=== PATIENT | male | born 1975 | race African-American/Black ===

== ENCOUNTER 2016-07-07 06:54 | Emergency (ER) | payer OTHER ==
[~2016-07-07] VITALS: Ht 172.7 cm; Wt 75.0 kg
[~2016-07-07 06:54] MED LIST: OLAN5TAB PO; PERM5CRE11 TOPICAL; ZYRT10CA PO
[2016-07-07 06:56] VITALS: BP 125/73; PULSE 82; RESP 16; TEMP 97.9; O2SAT 99
--- NOTE | 2016-07-07 07:32 | PD ---
HPI Chief Complaint: Bite or Sting Time Seen by Provider: 07:15 Travel History International Travel<30 days: No Contact w/Intl Traveler<30days: No Traveled to known affect area: No History of Present Illness HPI Patient is a 41-year-old male who presents emergency department for evaluation of an insect bite to the back of his head. He states that he was bit this morning and wanted to have it "checked out". He denies any fever, chills, nausea, vomiting, headache, neck pain. He denies any history of anaphylaxis. PFSH Past Medical History Anxiety: Yes Depression: Yes Diminished Hearing: No Gastrointestinal Disorders: No Genitourinary: No Hypertension: Yes Immune Disorder: Yes (HIV+) Immunizations Current: Yes Migraines: Yes Past Surgical History Other Surgery: No Social History Alcohol Use: No Tobacco Use: No Substance Use: No Allergies-Medications (Allergen,Severity, Reaction): Coded Allergies: *MDRO Multi-Drug Resistant Organism (Verified Adverse Reaction, Unknown, 06/19/16) MRSA PCR Screen positive 05/08/15; MRSA (groin-06/2015), (face-08/2015), (wrist-11/2015) Reported Meds & Prescriptions Reported Meds & Active Scripts Active Zyrtec Allergy (Cetirizine HCl) 10 Mg Cap 10 Mg PO DAILY Elimite Topical (Permethrin) 5% Cream 1 Applic TOPICAL ONCE Reported Olanzapine 5 Mg Tab 5 Mg PO HS Review of Systems Except as stated in HPI: all other systems reviewed are Neg General / Constitutional: No: Fever HENT: No: Headaches, Neck Stiffness, Neck Pain Respiratory: No: Cough, Shortness of Breath, Wheezing Skin: Positive Lesions Physical Exam Narrative GENERAL: Well-nourished, well-developed patient. SKIN: Warm and dry. There is a 3 mm scabbed lesion to posterior scalp, no surrounding erythema, fluctuance, tenderness, warmth. No drainage noted. HEAD: Normocephalic. EYES: No scleral icterus. No injection or drainage. NECK: Supple, trachea midline. No JVD or lymphadenopathy. CARDIOVASCULAR: Regular rate and rhythm without murmurs, gallops, or rubs. RESPIRATORY: Breath sounds equal bilaterally. No accessory muscle use. GASTROINTESTINAL: Abdomen soft, non-tender, nondistended. MUSCULOSKELETAL: No cyanosis, or edema. BACK: Nontender without obvious deformity. No CVA tenderness. Data Data Last Documented VS Vital Signs Date Time Temp Pulse Resp B/P Pulse Ox O2 Delivery O2 Flow Rate FiO2 07/07/16 06:56 97.9 82 16 125/73 99 MDM Medical Decision Making Medical Screen Exam Complete: Yes Emergency Medical Condition: Yes Interpretation(s) Vital Signs Date Time Temp Pulse Resp B/P Pulse Ox O2 Delivery O2 Flow Rate FiO2 07/07/16 06:56 97.9 82 16 125/73 99 Differential Diagnosis Insect bite versus dermatitis versus cellulitis versus folliculitis versus other Narrative Course Patient is a 41-year-old male who presents emergency for evaluation of insect bite that he states he sustained earlier this morning. There is no evidence of cellulitis noted. There is a 3 mm scabbed lesion to the posterior scalp. Patient was encouraged to avoid picking at this, he was encouraged to wash his hair with soap and water, he was reassured that at this time there did not appear to be any surrounding infection. His vital signs are stable, he verbalized understanding of instructions. He was encouraged to come back to emergency department for any new or worsening symptoms or follow up with his primary doctor or the [facility]. Patient is stable for discharge. Diagnosis Primary Impression: Insect bites Qualified Code: W57.XXXA - Insect bites, initial encounter Referrals: [facility] Patient Instructions: General Instructions, Insect Bite or Sting (ED) Additional Instructions: Follow-up at the [facility] or with your primary doctor Wash area with soap and water, do not pick at area Return to emergency department for any new or worsening symptoms Med/Other Pt SpecificInfo: No Change to Meds Disposition: 01 DISCHARGE HOME Condition: Stable Megan Cline Jul 07, 2016 07:31
[2016-10-20] MEDS ORDERED: IBUP200T2 PO (15:23)
[2016-10-20] MEDS ORDERED: ZYPR10TA PO (15:23)
[2016-10-20] MEDS ORDERED: BENA25TA3 PO (15:23)
[2016-10-20] MEDS ORDERED: AMOX500C PO (15:52)
[2016-10-20] MEDS ORDERED: METH125I2 IM (15:59)
[2016-10-20] MEDS ORDERED: CLOT1CRE6 TOPICAL (16:06)
[2016-11-26] MEDS ORDERED: DIPH25CA PO (11:37)
[2016-11-26] MEDS ORDERED: CIPR500T2 PO (12:06)
== END 2016-07-07 07:47 | disposition home or self-care (01) ==
LOC: NEPB 06:54 → MERGE 06:54 → NEPB 07:47
DX: S00.06XA Insect bite (nonvenomous) of scalp, initial encounter (principal); W57.XXXA Bitten or stung by nonvenomous insect and other nonvenomous arthropods, initial encounter
CPT/HCPCS: 99281

== ENCOUNTER 2016-07-22 19:20 | Emergency (ER) | payer OTHER ==
[~2016-07-22] VITALS: Ht 172.7 cm; Wt 81.0 kg
[2016-07-22 19:22] VITALS: BP 139/73; PULSE 85; RESP 16; TEMP 97.8; O2SAT 97
[2016-07-22] MEDS ORDERED: OFLO0.3D9 LEFT EAR (22:24)
[2016-07-22] MEDS ORDERED: AUGM875T PO (22:24)
--- NOTE | 2016-07-22 22:30 | PD ---
HPI Chief Complaint: ENT Complaint Time Seen by Provider: 22:20 Travel History International Travel<30 days: No Contact w/Intl Traveler<30days: No Traveled to known affect area: No History of Present Illness HPI 41-year-old male here with left ear pain. He has had a cough and congestion since yesterday. Today he developed left ear pain and drainage from left ear. Pain is a throbbing pain that is constant, no alleviating factors. No fevers or chills, recent travel, recent swimming. No other complaints. PFSH Past Medical History Anxiety: Yes Depression: Yes Cardiovascular Problems: Yes (HTN) Diminished Hearing: No Gastrointestinal Disorders: No Genitourinary: No Hypertension: Yes Immune Disorder: Yes (HIV+) Respiratory: Yes (BRONCHITIS) Immunizations Current: Yes Migraines: Yes Past Surgical History Other Surgery: No Social History Alcohol Use: No Tobacco Use: No Substance Use: No Allergies-Medications (Allergen,Severity, Reaction): Coded Allergies: *MDRO Multi-Drug Resistant Organism (Verified Adverse Reaction, Unknown, ) MRSA PCR Screen positive 05/08/15; MRSA (groin-06/2015), (face-08/2015), (wrist-11/2015) Reported Meds & Prescriptions Reported Meds & Active Scripts Active Ofloxacin Otic Drops 0.3 % Drops 10 Drop LEFT EAR BID 10 Days Augmentin (Amoxicillin-Clavulanate) 875-125 mg Tab 875 Mg PO BID 10 Days not for use in CrCl <30 ml/min. Zyrtec Allergy (Cetirizine HCl) 10 Mg Cap 10 Mg PO DAILY Elimite Topical (Permethrin) 5% Cream 1 Applic TOPICAL ONCE Reported Olanzapine 5 Mg Tab 5 Mg PO HS Review of Systems Except as stated in HPI: all other systems reviewed are Neg Physical Exam Narrative GENERAL: Well-developed well-nourished male in no acute distress SKIN: Warm and dry. HEAD: Atraumatic. Normocephalic. EYES: Pupils equal and round. No scleral icterus. No injection or drainage. ENT: No nasal bleeding or discharge. Mucous membranes pink and moist. There is some purulent looking drainage noted in the left ear canal. There appears to be a tympanic membrane perforation at the 7 o'clock position. NECK: Trachea midline. No JVD. No lymphadenopathy. CARDIOVASCULAR: Regular rate and rhythm. No murmur appreciated. RESPIRATORY: No accessory muscle use. Clear to auscultation. Breath sounds equal bilaterally. Data Data Last Documented VS Vital Signs Date Time Temp Pulse Resp B/P Pulse Ox O2 Delivery O2 Flow Rate FiO2 07/22/16 19:22 97.8 85 16 139/73 97 Room Air MDM Medical Decision Making Medical Screen Exam Complete: Yes Emergency Medical Condition: Yes Medical Record Reviewed: Yes Differential Diagnosis Left otitis media, perforated tympanic membrane, otitis externa, mastoiditis, bronchitis, pneumonia, influenza, sinusitis Narrative Course Examination reveals a perforated left tympanic membranes likely secondary to otitis media. Plan is to treat the patient with Augmentin, ofloxacin otic solution, outpatient follow-up in 1-2 weeks with primary care physician. Diagnosis Primary Impression: Left otitis media with spontaneous rupture of eardrum Additional Instructions: Medication as prescribed. Avoid getting water in left ear canal. Follow-up in one to 2 weeks with primary care physician. Return for any emergent medical conditions. Med/Other Pt SpecificInfo: Prescription(s) given Scripts Ofloxacin Otic Drops 0.3 % Drops10 Drop LEFT EAR BID 10 Days Ref 0 Prov:Bushra Short MD 07/22/16 Amoxicillin-Clavulanate (Augmentin)875-125 mg Hom666 Mg PO BID 10 Days Ref 0 not for use in CrCl <30 ml/min. Prov:Bushra Short MD 07/22/16 Disposition: 01 DISCHARGE HOME Condition: Stable Martin Tomas Jul 22, 2016 22:30
[2016-10-20] MEDS ORDERED: BENA25TA3 PO (15:23)
[2016-10-20] MEDS ORDERED: ZYPR10TA PO (15:23)
[2016-10-20] MEDS ORDERED: IBUP200T2 PO (15:23)
[2016-10-20] MEDS ORDERED: AMOX500C PO (15:52)
[2016-10-20] MEDS ORDERED: METH125I2 IM (15:59)
[2016-10-20] MEDS ORDERED: CLOT1CRE6 TOPICAL (16:06)
[2016-11-26] MEDS ORDERED: DIPH25CA PO (11:37)
[2016-11-26] MEDS ORDERED: CIPR500T2 PO (12:06)
== END 2016-07-22 22:56 | disposition home or self-care (01) ==
LOC: NEPB 19:20 → MERGE 19:20 → NEPB 22:56
DX: H66.92 Otitis media, unspecified, left ear (principal); H72.92 Unspecified perforation of tympanic membrane, left ear; I10 Essential (primary) hypertension; Z21 Asymptomatic human immunodeficiency virus [HIV] infection status
CPT/HCPCS: 99283

== ENCOUNTER 2016-08-13 12:36 | Emergency (ER) | payer SELFPAY ==
[~2016-08-13] VITALS: Ht 172.7 cm; Wt 79.1 kg
[~2016-08-13 12:36] MED LIST changes: +AUGM875T PO; +OFLO0.3D9 LEFT EAR
[2016-08-13 12:37] VITALS: BP 122/70; PULSE 75; RESP 14; TEMP 98.3; O2SAT 99
--- NOTE | 2016-08-13 13:08 | PD ---
HPI Chief Complaint: ENT Complaint Time Seen by Provider: 13:03 Travel History International Travel<30 days: No Contact w/Intl Traveler<30days: No Traveled to known affect area: No History of Present Illness HPI 41-year-old with past medical history of HIV here with complaints of ear fullness. Patient states he noted drainage several weeks ago and now has a fullness sensation to the right ear. He follows with Outreach and Dr. Barnett, but did not see either for his issue. He denies any fever, chills, cold sxs, etc. he denies any trauma to the ear. History Past Medical Histgory Narrative Medical 41-year-old male with history of HIV here with complaint of right ear fullness. Patient says he noticed some possible drainage from his ear several weeks ago and now feels full. He denies any cold-like symptoms. He denies any fever or chills. Social History Alcohol Use: No Tobacco Use: No Allergies-Medications (Allergen,Severity, Reaction): Coded Allergies: *MDRO Multi-Drug Resistant Organism (Verified Adverse Reaction, Unknown, ) MRSA PCR Screen positive 05/08/15; MRSA (groin-06/2015), (face-08/2015), (wrist-11/2015) Reported Meds & Prescriptions Reported Meds & Active Scripts Active Ofloxacin Otic Drops 0.3 % Drops 10 Drop LEFT EAR BID 10 Days Augmentin (Amoxicillin-Clavulanate) 875-125 mg Tab 875 Mg PO BID 10 Days not for use in CrCl <30 ml/min. Zyrtec Allergy (Cetirizine HCl) 10 Mg Cap 10 Mg PO DAILY Elimite Topical (Permethrin) 5% Cream 1 Applic TOPICAL ONCE Reported Olanzapine 5 Mg Tab 5 Mg PO HS Review of Systems General / Constitutional: No: Fever Eyes: No: Visual changes HENT: Positive: Ear Discharge, Earache, No: Headaches Cardiovascular: No: Chest Pain or Discomfort Respiratory: No: Shortness of Breath Gastrointestinal: No: Abdominal Pain Genitourinary: No: Dysuria Musculoskeletal: No: Pain Skin: No Rash Neurologic: No: Weakness Psychiatric: No: Depression Endocrine: No: Polydipsia Hematologic/Lymphatic: No: Easy Bruising Physical Exam Narrative GENERAL: AAO x 3, no acute distress, Well-nourished, well-developed patient. SKIN: Warm and dry. No visible rashes or bruising. HEAD: Normocephalic and atraumatic. EYES: No scleral icterus. No injection or drainage. ENT: No nasal drainage noted. Mucous membranes pink. Airway patent. Right Cerumen impaction and mild erythema. NECK: Supple, trachea midline. No JVD. CARDIOVASCULAR: Regular rate and rhythm without murmurs, gallops, or rubs. RESPIRATORY: Breath sounds equal bilaterally. No accessory muscle use. No rhonchi or rales. GASTROINTESTINAL: Abdomen soft, non-tender, nondistended. EXTREMITIES: No cyanosis or edema. PSYCH: AAO x 3, normal affect. Data Data Last Documented VS Vital Signs Date Time Temp Pulse Resp B/P Pulse Ox O2 Delivery O2 Flow Rate FiO2 08/13/16 12:37 98.3 75 14 122/70 99 Room Air MDM Medical Screen Exam Complete: Yes Emergency Medical Condition: No Differential Diagnosis cerumen impaction, right OM, Right OE Narrative Course 41-year-old male with history of HIV here with complaint of right ear fullness. Patient says he noticed some possible drainage from his ear several weeks ago and now feels full. He denies any cold-like symptoms. He denies any fever or chills. A medical screening exam was performed: At the time of evaluation the presenting medical condition was determined not to be of an emergent nature. The patient was given the option of receiving additional care, but declined. Patient was given options for additional community resources from which to obtain care. The Patient Has Been advised to seek medical attention for their presenting complaint. The patient has been advised to return to the ER at any time if an emergent condition develops. Primary Impression: Encounter for medical screening examination Condition: Stable (ERASED) Elizabeth Echeverria Aug 13, 2016 13:08
[2016-10-20] MEDS ORDERED: BENA25TA3 PO (15:23)
[2016-10-20] MEDS ORDERED: IBUP200T2 PO (15:23)
[2016-10-20] MEDS ORDERED: ZYPR10TA PO (15:23)
[2016-10-20] MEDS ORDERED: AMOX500C PO (15:52)
[2016-10-20] MEDS ORDERED: METH125I2 IM (15:59)
[2016-10-20] MEDS ORDERED: CLOT1CRE6 TOPICAL (16:06)
[2016-11-26] MEDS ORDERED: DIPH25CA PO (11:37)
[2016-11-26] MEDS ORDERED: CIPR500T2 PO (12:06)
== END 2016-08-13 13:16 | disposition left against medical advice (07) ==
LOC: NEPB 12:36 → MERGE 12:36 → NEPB 13:16
DX: H93.91 Unspecified disorder of right ear (principal)
CPT/HCPCS: 99281

== ENCOUNTER 2016-09-20 21:40 | Emergency (ER) | payer OTHER ==
[~2016-09-20] VITALS: Ht 172.7 cm; Wt 79.0 kg
[2016-09-20 21:43] VITALS: BP 133/68; PULSE 75; RESP 16; TEMP 97.4; O2SAT 100
[2016-09-20] MEDS ORDERED: DIVA250ER PO (22:00)
[2016-09-20] MEDS ORDERED: LISI10TA3 PO (22:00)
[2016-09-20] MEDS ORDERED: CORT1SOL EACH EAR (22:02)
--- NOTE | 2016-09-20 22:02 | PD ---
HPI Chief Complaint: ENT Complaint Time Seen by Provider: 21:59 Travel History International Travel<30 days: No Contact w/Intl Traveler<30days: No Traveled to known affect area: No History of Present Illness HPI 41-year-old black male presents to emergency department with a Q-tip in his left ear. He states that he feels that he has an ear infection he's been using Q-tips. Pain is minimal. No hearing loss. No blood. PFSH Past Medical History Narrative Medical Anxiety, depression, HIV Anxiety: Yes Depression: Yes Cardiovascular Problems: Yes (HTN) Diminished Hearing: No Gastrointestinal Disorders: No Genitourinary: No Hypertension: Yes Immune Disorder: Yes (HIV+) Respiratory: Yes (BRONCHITIS) Immunizations Current: Yes Migraines: Yes Past Surgical History Other Surgery: No Social History Alcohol Use: No Tobacco Use: No Substance Use: No Allergies-Medications (Allergen,Severity, Reaction): Coded Allergies: *MDRO Multi-Drug Resistant Organism (Verified Adverse Reaction, Unknown, ) MRSA PCR Screen positive 05/08/15; MRSA (groin-06/2015), (face-08/2015), (wrist-11/2015) Reported Meds & Prescriptions Reported Meds & Active Scripts Active Ofloxacin Otic Drops 0.3 % Drops 10 Drop LEFT EAR BID 10 Days Augmentin (Amoxicillin-Clavulanate) 875-125 mg Tab 875 Mg PO BID 10 Days not for use in CrCl <30 ml/min. Zyrtec Allergy (Cetirizine HCl) 10 Mg Cap 10 Mg PO DAILY Elimite Topical (Permethrin) 5% Cream 1 Applic TOPICAL ONCE Reported Olanzapine 5 Mg Tab 5 Mg PO HS Review of Systems Except as stated in HPI: all other systems reviewed are Neg Physical Exam Narrative GENERAL: Well-developed, well-nourished in no acute distress. Nontoxic appearing. HEAD: Normocephalic, atraumatic. EYES: Pupils equal round and reactive. Extraocular motions intact. No scleral icterus. No injection or drainage. ENT: TMs clear without erythema. The external auditory canals there is a Q-tip foreign body in the left external auditory canals. There is some edema of the canal bilaterally. TMs intact without perforation. Nose: clear . Posterior pharynx is pink and moist. No tonsillar edema or exudate. Uvula midline. Airway patent. NECK: Trachea midline.Supple, nontender, moves head freely. No central bony tenderness or spasm. CARDIOVASCULAR: Regular rate and rhythm without murmurs, gallops, or rubs. RESPIRATORY: Clear to auscultation. Breath sounds equal bilaterally. No wheezes , rales, or rhonchi. GASTROINTESTINAL: Abdomen soft, non-tender, nondistended. No hepato-splenomegaly , or palpable masses. No guarding. EXTREMITIES: No clubbing, cyanosis, or edema. No joint tenderness, effusion, or edema noted. BACK: Nontender without deformity or crepitance. No flank tenderness. Data Data Last Documented VS Vital Signs Date Time Temp Pulse Resp B/P Pulse Ox O2 Delivery O2 Flow Rate FiO2 09/20/16 21:43 97.4 75 16 133/68 100 Room Air MDM Medical Decision Making Medical Screen Exam Complete: Yes Emergency Medical Condition: Yes Medical Record Reviewed: Yes Differential Diagnosis Differential diagnoses: Otitis externa, otitis media, foreign body Narrative Course Patient has a foreign body in his left ear canal which has been removed Procedures Procedure Narrative Foreign body removal left ear canal: Using alligator forceps the cotton tip is removed from the canal without incidence. The ear is reexamined and no laceration or TM perforation. Diagnosis Primary Impression: foreign body removal left ear Additional Impression: Otitis externa Qualified Code: H60.333 - Acute swimmer's ear of both sides Patient Instructions: General Instructions Additional Instructions: Rest. Cortisporin otic drops. Follow-up with your doctor in 1 week. Return to the ER if any problems. Med/Other Pt SpecificInfo: Prescription(s) given Disposition: 01 DISCHARGE HOME Condition: Stable Jean Ryan Sep 20, 2016 22:02
[2016-10-20] MEDS ORDERED: BENA25TA3 PO (15:23)
[2016-10-20] MEDS ORDERED: ZYPR10TA PO (15:23)
[2016-10-20] MEDS ORDERED: IBUP200T2 PO (15:23)
[2016-10-20] MEDS ORDERED: AMOX500C PO (15:52)
[2016-10-20] MEDS ORDERED: METH125I2 IM (15:59)
[2016-10-20] MEDS ORDERED: CLOT1CRE6 TOPICAL (16:06)
[2016-11-26] MEDS ORDERED: DIPH25CA PO (11:37)
[2016-11-26] MEDS ORDERED: CIPR500T2 PO (12:06)
== END 2016-09-20 22:12 | disposition home or self-care (01) ==
LOC: NEPB 21:40 → MERGE 21:40 → NEPB 22:12
DX: T16.2XXA Foreign body in left ear, initial encounter (principal); H60.92 Unspecified otitis externa, left ear; H60.333 Swimmer's ear, bilateral; I10 Essential (primary) hypertension; Z21 Asymptomatic human immunodeficiency virus [HIV] infection status; W45.8XXA Other foreign body or object entering through skin, initial encounter; Y93.E8 Activity, other personal hygiene
CPT/HCPCS: 69200

== ENCOUNTER 2016-09-29 02:23 | Emergency (ER) | payer OTHER ==
[~2016-09-29] VITALS: Ht 172.7 cm; Wt 79.0 kg
[~2016-09-29 02:23] MED LIST changes: -AUGM875T PO; +CORT1SOL EACH EAR; +DIVA250ER PO; +LISI10TA3 PO; -OFLO0.3D9 LEFT EAR; -OLAN5TAB PO; -PERM5CRE11 TOPICAL; -ZYRT10CA PO
[2016-09-29 02:25] VITALS: BP 133/75; PULSE 84; RESP 16; TEMP 97.6; O2SAT 99
[2016-09-29] MEDS ORDERED: SULFAMETHOXAZOLE-TRIMETHOPRIM DS 800-160 MG TAB PO ONE (05:00)
[2016-09-29] MEDS ORDERED: CETIRIZINE HCL 10 MG TAB PO ONE (05:00)
--- NOTE | 2016-09-29 05:08 | PD ---
HPI Chief Complaint: Skin Problem Time Seen by Provider: 05:00 Travel History International Travel<30 days: No Contact w/Intl Traveler<30days: No Traveled to known affect area: No History of Present Illness HPI Patient comes in for evaluation of a pruritic rash ongoing for a few days. Patient states rash started on his legs and has since spread to his arms and trunk. Patient states he's had similar in the past was told with insect bites but has not been around any insects this time that he is aware. Denies any fevers, weight loss, shortness of breath, chest pain, or being around anyone else with similar. Patient denies doing anything for this, besides scratching it. Patient reports he has been off his HIV meds for approximately 2 months secondary to needing to be to recertified with his HIV doctor. Patient states the itching in the same any time day or night. Patient states lesion started off as a small bump that crack open and crusted over. PFSH Past Medical History Anxiety: Yes Depression: Yes Cardiovascular Problems: Yes (HTN) Diminished Hearing: No Gastrointestinal Disorders: No Genitourinary: No Hypertension: Yes Immune Disorder: Yes (HIV+) Respiratory: Yes (BRONCHITIS) Immunizations Current: Yes Migraines: Yes Past Surgical History Other Surgery: No Social History Alcohol Use: No Tobacco Use: No Substance Use: No Allergies-Medications (Allergen,Severity, Reaction): Coded Allergies: *MDRO Multi-Drug Resistant Organism (Verified Adverse Reaction, Unknown, ) MRSA PCR Screen positive 05/08/15; MRSA (groin-06/2015), (face-08/2015), (wrist-11/2015) Reported Meds & Prescriptions Reported Meds & Active Scripts Active Bactroban Topical (Mupirocin) 2% Oint 1 Applic TOPICAL BID Bactrim DS (Sulfamethoxazole-Trimethoprim) 800-160 Mg Tab 1 Tab PO BID 14 Days Reported Depakote ER (Divalproex Sodium) 250 Mg Zaid 250 Mg PO DAILY Review of Systems Except as stated in HPI: all other systems reviewed are Neg Physical Exam Narrative GENERAL: Well-developed, well nourished, in no acute distress, and non-ill appearing. SKIN: Warm and dry. Impetigo appearing lesions noted bilateral upper and lower extremities as well as trunk. Lesions are not consistent with scabies, folliculitis, or allergic reaction. HEAD: Atraumatic. Normocephalic. EYES: Pupils equal and round. EOMI. No scleral icterus. No injection or drainage. ENT: No nasal bleeding or discharge. Mucous membranes pink and moist. NECK: Trachea midline. Supple. No nuclear rigidity. RESPIRATORY: No accessory muscle use. No respiratory distress. MUSCULOSKELETAL: No obvious deformities. No clubbing. No cyanosis. No edema. Full range of motion. NEUROLOGICAL: Awake and alert. No obvious cranial nerve deficits. Motor grossly within normal limits. Normal speech. PSYCHIATRIC: Appropriate mood and affect; insight and judgment normal. Data Data Last Documented VS Vital Signs Date Time Temp Pulse Resp B/P Pulse Ox O2 Delivery O2 Flow Rate FiO2 09/29/16 04:59 16 09/29/16 02:25 97.6 84 133/75 99 Room Air Orders Cetirizine (Zyrtec) (09/29/16 05:00) Sulfamet-Trimeth Ds 800-160 Mg (Bactrim (09/29/16 05:00) MDM Medical Decision Making Medical Screen Exam Complete: Yes Emergency Medical Condition: Yes Differential Diagnosis Scabies, folliculitis, impetigo, allergic reaction, other Narrative Course There was no evidence to suggest scabies, cellulitis, folliculitis or abscess, Staph. Scalded Skin Syndrome, Toxic Shock, Toxic Epidermal necrolysis, Kawasaki s, Measles, Rubella, cutaneous T cell lymphoma, Erythema Multiforme (minor or major). Plan of care was discussed with the patient and the patient is to follow up with their physician. The patient agreed with plan. Patient in no obvious distress upon re-evaluation. Patient was asked if they wanted to speak to my attending, which the patient did not wish to do at this time. Any questions/concerns in reference to patient diagnosis/condition discussed and clarified prior to patient's discharge. Reinforced sheer importance of close follow up with patient's primary physician or primary care clinic. Instructed patient to return to ED immediately, if symptoms return/ worsen. Pt showed understanding of above instructions. Further instructions and recommendations were detailed in discharge paperwork. Pt ambulated without difficulty out of ED at discharge. Diagnosis Primary Impression: Impetigo Patient Instructions: General Instructions, Impetigo (ED) Additional Instructions: Follow-up with your primary care physician in 2-3 days for reevaluation. Take all medication as prescribed. Use [id number] Benadryl or Claritin or Zyrtec for itching as needed. Follow instructions on the packaging. Return to the emergency department if symptoms get worse. Med/Other Pt SpecificInfo: Prescription(s) given Scripts Mupirocin Topical (Bactroban Topical)2% Oint1 Applic TOPICAL BID #22 GM Ref 0 Prov:Viktoriya Jones MD 09/29/16 Sulfamethoxazole-Trimethoprim (Bactrim DS)800-160 Mg Tab1 Tab PO BID 14 Days Ref 0 Prov:Viktoriya Jones MD 09/29/16 Disposition: 01 DISCHARGE HOME Condition: Stable Joseluis Coronado Sep 29, 2016 05:08
[2016-09-29] MEDS ORDERED: BACT2OIN TOPICAL (05:09)
[2016-09-29] MEDS ORDERED: BACT800T5 PO (05:09)
[2016-10-20] MEDS ORDERED: IBUP200T2 PO (15:23)
[2016-10-20] MEDS ORDERED: ZYPR10TA PO (15:23)
[2016-10-20] MEDS ORDERED: BENA25TA3 PO (15:23)
[2016-10-20] MEDS ORDERED: AMOX500C PO (15:52)
[2016-10-20] MEDS ORDERED: METH125I2 IM (15:59)
[2016-10-20] MEDS ORDERED: CLOT1CRE6 TOPICAL (16:06)
[2016-11-26] MEDS ORDERED: DIPH25CA PO (11:37)
[2016-11-26] MEDS ORDERED: CIPR500T2 PO (12:06)
== END 2016-09-29 05:20 | disposition home or self-care (01) ==
LOC: NEPB 02:23 → MERGE 02:23 → NEPB 05:20
DX: L01.00 Impetigo, unspecified (principal); I10 Essential (primary) hypertension
CPT/HCPCS: 99283

== ENCOUNTER → 2016-10-26 | Outpatient (CLI) | payer OTHER ==
[~2016-10-26] MED LIST changes: +AMOX500C PO; +BACT2OIN TOPICAL; +BENA25TA3 PO; +CIPR500T2 PO; +CLOT1CRE6 TOPICAL; -CORT1SOL EACH EAR; +DIPH25CA PO; +IBUP200T2 PO; -LISI10TA3 PO; +METH125I2 IM; +ZOFR4TAB PO; +ZYPR10TA PO
== END ==
LOC: CLAB 13:37 → MERGE 13:37
PROVIDERS: ATTEND Family Medicine
DX: F32.9 Major depressive disorder, single episode, unspecified (principal)
CPT/HCPCS: 36415; 80164

== ENCOUNTER 2016-11-11 14:50 | Emergency (ER) | payer OTHER ==
[~2016-11-11] VITALS: Ht 172.7 cm; Wt 80.0 kg
[~2016-11-11 14:50] MED LIST changes: -CIPR500T2 PO; -DIPH25CA PO; -METH125I2 IM; -ZOFR4TAB PO
[2016-11-11 14:51] VITALS: BP 128/76; PULSE 88; RESP 16; TEMP 97.5; O2SAT 100
--- NOTE | 2016-11-11 15:31 | PD ---
HPI Chief Complaint: ENT Complaint Time Seen by Provider: 15:26 Travel History International Travel<30 days: No Contact w/Intl Traveler<30days: No Traveled to known affect area: No History of Present Illness HPI 41-year-old male presents to the emergency Department with complaint of his left ear feeling clogged for the last couple weeks. Reports decreased hearing in the left ear. Denies fever, vomiting. Denies nasal congestion, cough, sore throat. Has used eardrops with no relief of symptoms. Has not taken any other medications or turning her treatments to relieve the symptoms. Has no other medical complaints. No other modifying factors or associated signs and symptoms. History Social History Alcohol Use: No Tobacco Use: No Allergies-Medications (Allergen,Severity, Reaction): Coded Allergies: *MDRO Multi-Drug Resistant Organism (Verified Adverse Reaction, Unknown, ) MRSA PCR Screen positive 05/08/15; MRSA (groin-06/2015), (face-08/2015), (wrist-11/2015) Reported Meds & Prescriptions Reported Meds & Active Scripts Active Clotrimazole Anti-Fungal Topical (Clotrimazole) 1% Cream 1 Applic TOPICAL BID Amoxicillin 500 Mg Cap 500 Mg PO TID Bactroban Topical (Mupirocin) 2% Oint 1 Applic TOPICAL BID Reported Benadryl Allergy (Diphenhydramine HCl) 25 Mg Tab 25 Mg PO Q6H PRN Ibuprofen 200 Mg Tab 400 Mg PO Q4H PRN Zyprexa (Olanzapine) 10 Mg Tab 10 Mg PO DAILY Depakote ER (Divalproex Sodium) 250 Mg Zaid 250 Mg PO BID Review of Systems Except as stated in HPI: all other systems reviewed are Neg Physical Exam Narrative GENERAL: Well-nourished, well-developed male patient, in no acute distress; afebrile, nontoxic-appearing SKIN: Warm and dry. No rash. HEAD: Atraumatic. Normocephalic. EYES: Pupils equal and round at 3 mm with brisk reaction. No scleral icterus. No injection or drainage. PERRLA. ENT: Mucosa pink and moist. No erythema or exudates. No uvular edema. No uvular , palatal, or tonsillar deviation. Airway patent. EARS: Bilateral pinnae and external canals appear within normal limits. Bilateral tympanic membranes without erythema, dullness or perforation. NECK: Trachea midline. No lymphadenopathy. CARDIOVASCULAR: Regular rate. RESPIRATORY: No accessory muscle use. GASTROINTESTINAL: Flat. MUSCULOSKELETAL: No obvious deformities. No clubbing. No cyanosis. No edema. NEUROLOGICAL: Awake and alert. Oriented 3. No obvious cranial nerve deficits. Motor grossly within normal limits. Normal speech. Moves all extremities. 5/5 strength to all extremities. PSYCHIATRIC: Appropriate mood and affect; insight and judgment normal. Data Data Last Documented VS Vital Signs Date Time Temp Pulse Resp B/P Pulse Ox O2 Delivery O2 Flow Rate FiO2 11/11/16 14:51 97.5 88 16 128/76 100 MDM Medical Screen Exam Complete: Yes Emergency Medical Condition: No Differential Diagnosis Cerumen impaction, otitis media, foreign body Narrative Course 41-year-old male bilateral ear exam is unremarkable. There are no signs of otitis media, otitis externa and there is no cerumen impaction or foreign body. The eardrum is intact and without perforation. I did review his medical record and saw the patient has history of perforated left eardrum. Patient is reporting muffled and decreased hearing. Recommended the patient to try taking [id number] antihistamine and to follow up with ENT as needed. Vital signs are stable and the patient is stable for outpatient follow-up and treatment. The patient has no urgent or emergent medical complaints. There is no emergent or urgent medical need at this time. I instructed the patient to follow up with their primary care provider. A medical screening exam was performed: At the time of evaluation the presenting medical condition was determined not to be of an emergent nature. The patient was given the option of receiving additional care, but declined. Patient was given options for additional community resources from which to obtain care. The Patient Has Been advised to seek medical attention for their presenting complaint. The patient has been advised to return to the ER at any time if an emergent condition develops. Primary Impression: Encounter for medical screening examination Condition: Stable Jaqui Campos November 11, 2016 15:31
[2016-11-26] MEDS ORDERED: DIPH25CA PO (11:37)
[2016-11-26] MEDS ORDERED: CIPR500T2 PO (12:06)
== END 2016-11-11 15:35 | disposition left against medical advice (07) ==
LOC: NEPK 14:50 → MERGE 14:50 → NEPK 15:35
DX: H93.8X2 Other specified disorders of left ear (principal)
CPT/HCPCS: 99281

== ENCOUNTER → 2016-11-19 | Outpatient (CLI) | payer OTHER ==
[~2016-11-19] MED LIST changes: +CIPR500T2 PO; +DIPH25CA PO; +ZOFR4TAB PO
[2016-11-19 12:31] LABS: BASOPHIL % 0.1 % (0.0-2.0); EOSINOPHIL # 0.1 TH/MM3 (0-0.4); EOSINOPHIL % 3.1 % (0.0-4.0); HEMATOCRIT 33.7 % (39.0-51.0); HEMO FLAGS DIFF FINAL; LYMPH % 33.1 % (9.0-44.0); LYMPHOCYTE # 1.3 TH/MM3 (1.0-4.8); MEAN CELL VOLUME 81.5 FL (80.0-100.0); MEAN CORPUSCULAR HGB CONC 33.2 % (32.0-36.0); MONO % 12.3 % (0.0-8.0); NEUT % 51.4 % (16.0-70.0); PLATELET COUNT 217 TH/MM3 (150-450); RED BLOOD COUNT 4.13 MIL/MM3 (4.50-5.90); RED CELL DISTRIBUTION WIDTH 12.7 % (11.6-17.2)
[2016-11-19 12:55] LABS: ALT (GPT) 20 U/L (12-78); ANION GAP 8 MEQ/L (5-15); AST (GOT) 32 U/L (15-37); BICARBONATE 25.7 MEQ/L (21.0-32.0); BLOOD UREA NITROGEN 16 MG/DL (7-18); CHLORIDE 106 MEQ/L (98-107); GLOMERULAR FILTRATION RATE 89 ML/MIN (>89); GLUCOSE,FASTING 71 MG/DL (74-99); POTASSIUM 3.7 MEQ/L (3.5-5.1); SODIUM (NA) 140 MEQ/L (136-145)
[2016-11-19 13:04] LABS: ALKALINE PHOSPHATASE 64 U/L (45-117); HDL CHOLESTEROL 29.6 MG/DL (40.0-60.0); LDL CHOLESTEROL 98 MG/DL (0-99); TOTAL BILIRUBIN ADULT 0.7 MG/DL (0.2-1.0)
== END ==
LOC: CLAB 11:51 → MERGE 11:51
PROVIDERS: ATTEND Family Medicine
DX: H60.90 Unspecified otitis externa, unspecified ear (principal); F32.9 Major depressive disorder, single episode, unspecified; Z21 Asymptomatic human immunodeficiency virus [HIV] infection status
CPT/HCPCS: 36415; 80053; 80061; 84443; 85025

== ENCOUNTER 2016-12-01 11:48 | Emergency (ER) | payer OTHER ==
[~2016-12-01] VITALS: Ht 152.4 cm; Wt 78.0 kg
[~2016-12-01 11:48] MED LIST changes: -BACT2OIN TOPICAL; -BENA25TA3 PO; -CLOT1CRE6 TOPICAL; -IBUP200T2 PO; -ZOFR4TAB PO
[2016-12-01 11:50] VITALS: BP 107/62; PULSE 89; RESP 16; TEMP 98.2; O2SAT 98
--- NOTE | 2016-12-01 11:56 | PD ---
Physical Exam Date Seen by Provider: December 01, 2016 Time Seen by Provider: 11:54 Narrative 41 yo male here for abdominal pain and headache. Having cough with vomit. Congestion. Body aches. Nausea with eating. Has been going for 4 days. No sick contacts. Not taking anything for this. Not getting better which prompted here to come here. pain is 4/10. Vitals sign stable. Patient awaiting bed placement. Data Data Last Documented VS Vital Signs Date Time Temp Pulse Resp B/P Pulse Ox O2 Delivery O2 Flow Rate FiO2 12/01/16 11:50 98.2 89 16 107/62 98 MDM Medical Record Reviewed: Yes Supervised Visit with MARILEE: No Joey Massey December 01, 2016 11:55
--- NOTE | 2016-12-01 12:21 | PD ---
HPI Chief Complaint: Cold / Flu Symptoms Time Seen by Provider: 12:17 Travel History International Travel<30 days: No Contact w/Intl Traveler<30days: No Traveled to known affect area: No History of Present Illness HPI Patient is a 41-year-old male presenting to emergency department for evaluation of abdominal pain, nausea, vomiting, productive cough with green sputum. Patient reports being HIV positive, he is not on any antiviral therapy at this time. He states it off of it for several months. He reports a history of hypertension as well. He states he is unable to keep any food or fluids down. He reports epigastric and right lower quadrant abdominal pain. Patient reports the pain is a 5 out of 10. PFSH Past Medical History Anxiety: Yes Depression: Yes Diminished Hearing: No Gastrointestinal Disorders: No Genitourinary: No Hypertension: Yes Immune Disorder: Yes (HIV+) Respiratory: Yes (BRONCHITIS) Immunizations Current: Yes Migraines: Yes Past Surgical History Other Surgery: No Social History Alcohol Use: No Tobacco Use: No Substance Use: No Allergies-Medications (Allergen,Severity, Reaction): Coded Allergies: *MDRO Multi-Drug Resistant Organism (Verified Adverse Reaction, Unknown, ) MRSA PCR Screen positive 05/08/15; MRSA (groin-06/2015), (face-08/2015), (wrist-11/2015) Reported Meds & Prescriptions Reported Meds & Active Scripts Active Ciprofloxacin (Ciprofloxacin HCl) 500 Mg Tab 500 Mg PO BID Amoxicillin 500 Mg Cap 500 Mg PO TID Reported Diphenhydramine (Diphenhydramine HCl) 25 Mg Cap 25 Mg PO Q6H PRN Zyprexa (Olanzapine) 10 Mg Tab 10 Mg PO DAILY Depakote ER (Divalproex Sodium) 250 Mg Zaid 250 Mg PO BID Review of Systems Except as stated in HPI: all other systems reviewed are Neg General / Constitutional: Positive: Chills, Other (fatigue) HENT: No: Headaches Cardiovascular: No: Chest Pain or Discomfort Respiratory: Positive: Cough, Shortness of Breath, Hemoptysis Gastrointestinal: Positive: Nausea, Vomiting, Abdominal Pain (epigastric and right lower quadrant) Genitourinary: No: Dysuria Neurologic: Positive: Weakness Physical Exam Narrative GENERAL: Well-developed, well-nourished, alert male. Resting comfortably in no acute distress. SKIN: Focused skin assessment warm/dry. HEAD: Atraumatic. Normocephalic. EYES: Pupils equal and round. No scleral icterus. No injection or drainage. ENT: No nasal bleeding or discharge. Mucous membranes pink and moist. NECK: Trachea midline. No JVD. CARDIOVASCULAR: Regular rate and rhythm. No murmur appreciated. RESPIRATORY: No accessory muscle use. Clear to auscultation. Breath sounds equal bilaterally. GASTROINTESTINAL: Abdomen soft, tender to palpation in epigastric and right lower quadrant, nondistended. Hepatic and splenic margins not palpable. Positive bowel sounds. MUSCULOSKELETAL: No obvious deformities. No clubbing. No cyanosis. No edema. NEUROLOGICAL: Awake and alert. No obvious cranial nerve deficits. Motor grossly within normal limits. Normal speech. PSYCHIATRIC: Appropriate mood and affect; insight and judgment normal. Data Data Last Documented VS Vital Signs Date Time Temp Pulse Resp B/P Pulse Ox O2 Delivery O2 Flow Rate FiO2 12/01/16 11:50 98.2 89 16 107/62 98 [facility] Medical Decision Making Medical Screen Exam Complete: Yes Emergency Medical Condition: Yes Interpretation(s) Vital Signs Date Time Temp Pulse Resp B/P Pulse Ox O2 Delivery O2 Flow Rate FiO2 12/01/16 11:50 98.2 89 16 107/62 98 Differential Diagnosis Electrolyte abnormality versus gastritis versus gastroenteritis versus obstruction versus pneumonia versus cholecystitis versus appendicitis Narrative Course Patient is a 41-year-old male presenting with abdominal pain, nausea, vomiting, cough. Patient is HIV positive and not on any antiviral therapy for the last several months. At this time patient was moved to a medical bed for more complete workup. Megan Cline December 01, 2016 12:21
[2016-12-01] MEDS ORDERED: SODIUM CHLOR 0.9% 1000 ML INJ 1,000 ML IV SCH (12:33)
--- NOTE | 2016-12-01 12:36 | PD ---
HPI Chief Complaint: Cold / Flu Symptoms Time Seen by Provider: 12:36 Travel History International Travel<30 days: No Contact w/Intl Traveler<30days: No Traveled to known affect area: No History of Present Illness HPI 41-year-old male with a history of hypertension and HIV presents to the emergency department for evaluation of nausea, vomiting, diarrhea, abdominal pain and cough for 3 days. The patient states that he has not been on any antiviral medications for several months, has not had his CD4 count or viral load checked in a while. He complains of pain in the epigastric and right lower quadrant. He complains of chills, denies fever. Complains of fatigue and body aches as well as cough with green sputum. Denies any black stool, bloody stool, bloody vomit, dysuria, chest pain, dizziness. He does complain of shortness of breath for the last 3 days as well. Denies any history of smoking, drug use, alcohol use, IV drug use. Denies any history of abdominal surgeries. PCP is Dr. Trent. No other complaints. PFSH Past Medical History Anxiety: Yes Depression: Yes Diminished Hearing: No Gastrointestinal Disorders: No Genitourinary: No Hypertension: Yes Immune Disorder: Yes (HIV +) Respiratory: Yes (BRONCHITIS) Immunizations Current: Yes Migraines: Yes Past Surgical History Other Surgery: No Social History Alcohol Use: No Tobacco Use: No Substance Use: No Allergies-Medications (Allergen,Severity, Reaction): Coded Allergies: *MDRO Multi-Drug Resistant Organism (Verified Adverse Reaction, Unknown, ) MRSA PCR Screen positive 05/08/15; MRSA (groin-06/2015), (face-08/2015), (wrist-11/2015) Reported Meds & Prescriptions Reported Meds & Active Scripts Active Zofran (Ondansetron HCl) 4 Mg Tab 4 Mg PO Q6HR PRN Ciprofloxacin (Ciprofloxacin HCl) 500 Mg Tab 500 Mg PO BID Amoxicillin 500 Mg Cap 500 Mg PO TID Reported Zyprexa (Olanzapine) 10 Mg Tab 10 Mg PO DAILY Depakote ER (Divalproex Sodium) 250 Mg Zaid 250 Mg PO BID Review of Systems Except as stated in HPI: all other systems reviewed are Neg Physical Exam Narrative GENERAL: Well-nourished and well-developed pleasant male patient in no acute distress who is nontoxic appearing. SKIN: Warm and dry. HEAD: Normocephalic and atraumatic. EYES: No injection, drainage, or hyphema noted. PERRLA. EOMI. ENT: No nasal drainage noted. Oropharynx is clear. NECK: Supple and the trachea is midline. CARDIOVASCULAR: Regular rate and rhythm. RESPIRATORY: Breath sounds are equal bilaterally with no accessory muscle use, wheezing, rhonchi, or crackles. GASTROINTESTINAL: Tenderness to palpation of left upper quadrant, epigastric and right lower quadrant. No rebound tenderness or guarding. Abdomen is soft and nondistended. MUSCULOSKELETAL: No obvious deformities, swelling, cyanosis, or ecchymosis is present throughout the upper and lower extremities. Patient has full range of motion without any signs of neurovascular compromise. NEUROLOGICAL: Awake, alert, and oriented. Normal speech and gait. Cranial nerves are grossly intact. Data Data Last Documented VS Vital Signs Date Time Temp Pulse Resp B/P Pulse Ox O2 Delivery O2 Flow Rate FiO2 12/01/16 14:20 83 16 110/64 97 Room Air 12/01/16 11:50 98.2 Orders Complete Blood Count With Diff (12/01/16 12:33) Comprehensive Metabolic Panel (12/01/16 12:33) Lactic Acid Sepsis Protocol (12/01/16 12:33) Lipase (12/01/16 12:33) Urinalysis - C+S If Indicated (12/01/16 12:33) Influenzae A/B Antigen (12/01/16 12:33) Blood Culture (12/01/16 12:33) Chest, Single Ap (12/01/16 12:33) Ecg Monitoring (12/01/16 12:33) Iv Access Insert/Monitor (12/01/16 12:33) Oximetry (12/01/16 12:33) Ondansetron Inj (Zofran Inj) (12/01/16 12:45) Sodium Chlor 0.9% 1000 Ml Inj (Ns 1000 M (12/01/16 12:33) Ct Abd/Pel W Iv Contrast(Rout) (12/01/16 12:39) Iohexol 350 Inj (Omnipaque 350 Inj) (12/01/16 14:34) Labs Laboratory Tests Test 12/01/16 12/01/16 12:50 13:15 Urine Color YELLOW Urine Turbidity CLEAR Urine pH 6.5 Urine Specific [place] 1.024 Urine Protein 30 mg/dL Urine Glucose (UA) NEG mg/dL Urine Ketones NEG mg/dL Urine Occult Blood NEG Urine Nitrite NEG Urine Bilirubin NEG Urine Urobilinogen LESS THAN 2.0 MG/DL Urine Leukocyte Esterase NEG Urine RBC 1 /hpf Urine WBC 1 /hpf Urine Squamous Epithelial <1 /hpf Cells Urine Hyaline Casts 1 /lpf Urine Mucus FEW /lpf Microscopic Urinalysis Comment CATH-CULT NOT IND Lactic Acid Level 1.5 mmol/L White Blood Count 3.8 TH/MM3 Red Blood Count 3.40 MIL/MM3 Hemoglobin 9.1 GM/DL Hematocrit 28.3 % Mean Corpuscular Volume 83.3 FL Mean Corpuscular Hemoglobin 26.8 PG Mean Corpuscular Hemoglobin 32.2 % Concent Red Cell Distribution Width 13.1 % Platelet Count 116 TH/MM3 Mean Platelet Volume 8.1 FL Neutrophils (%) (Auto) 51.8 % Lymphocytes (%) (Auto) 30.7 % Monocytes (%) (Auto) 13.8 % Eosinophils (%) (Auto) 3.1 % Basophils (%) (Auto) 0.6 % Neutrophils # (Auto) 2.0 TH/MM3 Lymphocytes # (Auto) 1.2 TH/MM3 Monocytes # (Auto) 0.5 TH/MM3 Eosinophils # (Auto) 0.1 TH/MM3 Basophils # (Auto) 0.0 TH/MM3 CBC Comment DIFF FINAL Differential Comment Sodium Level 136 MEQ/L Potassium Level 3.5 MEQ/L Chloride Level 99 MEQ/L Carbon Dioxide Level 29.3 MEQ/L Anion Gap 8 MEQ/L Blood Urea Nitrogen 13 MG/DL Creatinine 0.97 MG/DL Estimat Glomerular Filtration 104 ML/MIN Rate Random Glucose 77 MG/DL Calcium Level 8.3 MG/DL Total Bilirubin 0.6 MG/DL Aspartate Amino Transf 39 U/L (AST/SGOT) Alanine Aminotransferase 25 U/L (ALT/SGPT) Alkaline Phosphatase 49 U/L Total Protein 7.6 GM/DL Albumin 3.1 GM/DL Lipase 344 U/L [facility] Medical Decision Making Medical Screen Exam Complete: Yes Emergency Medical Condition: Yes Differential Diagnosis Influenza versus gastroenteritis versus pneumonia versus gastritis versus appendicitis versus PJP versus other Narrative Course 41-year-old male with a history of HIV not on any antiretroviral therapy presents to the emergency department for nausea, vomiting, diarrhea, abdominal pain and cough for 3 days. Patient is afebrile, vital signs are stable. He is complaining of tenderness to palpation in the epigastric and right lower quadrant regions. Abdominal examination does not reveal any peritoneal signs. IV access is obtained, labs drawn and sent. Patient is administered IV fluids and Zofran. CBC shows pancytopenia with a white blood cell count 3.8, red blood cell count 3.4, hemoglobin 9.1, hematocrit 28.3, platelets 116. CMP is unremarkable. Urinalysis shows 30 protein, otherwise unremarkable. Influenza swab is negative. Chest x-ray is negative. CT of the abdomen and pelvis with IV contrast negative for any acute abnormalities. Patient has remained stable without complaint while here in the emergency department. Labs and imaging are unremarkable for any acute abnormalities. Patient likely has a viral gastroenteritis. He'll be discharged with Zofran. Stressed importance of outpatient follow-up with his PCP and with an infectious disease physician. Patient verbalizes understanding and agreement with treatment plan. I discussed the case with my attending physician Dr. Hernandez who is aware of the patients history, physical examination findings, and treatment plan. Diagnosis Primary Impression: Gastroenteritis Referrals: Primary Care Physician Patient Instructions: Gastroenteritis (ED), General Instructions Additional Instructions: Rest. Drink plenty of fluids. Eat bland foods such as bananas, rice, applesauce and toast. Take medication as prescribed. Follow-up with your Primary Care Physician. Return to the ED for any acute worsening of symptoms. Med/Other Pt SpecificInfo: Prescription(s) given Scripts Ondansetron (Zofran)4 Mg Tab4 Mg PO Q6HR PRN (NAUSEA OR VOMITING) #10 TAB Ref 0 Prov:Anila Hernandez MD 12/01/16 Disposition: 01 DISCHARGE HOME Condition: Stable Jaqui Kenney December 01, 2016 12:36
[2016-12-01] MEDS ORDERED: ONDANSETRON HCL 4 MG/2 ML VIAL IVP ONE (12:45)
[2016-12-01 13:17] LABS: BLOOD, URINE NEG (NEG); COMMENT (UR) CATH-CULT NOT IND; CULTURE IF INDICATED CATH CULTURE NOT IND; GLUCOSE,URINE NEG (NEG); HYALINE CAST, URINE 1 /lpf (RARE); KETONE, URINE NEG (NEG); MUCUS URINE FEW /lpf (OCC); NITRITE,URINE NEG (NEG); PH, URINE 6.5 (5.0-8.5); SQUAMOUS EPITHELIAL CELL URINE <1 /hpf (0-5); URINE COLOR YELLOW (YELLW/STRAW)
--- NOTE | 2016-12-01 13:26 | RADRPT ---
EXAM DATE/TIME: 12/01/2016 13:04 [facility] COMPARISON: CHEST SINGLE AP, May 24, 2016, 11:19. INDICATIONS : Cough and vomiting for 3 days. MEDICAL HISTORY : Hypertension. HIV. SURGICAL HISTORY : None. ENCOUNTER: Initial ACUITY: 3 days PAIN SCORE: 3/10 LOCATION: Bilateral chest FINDINGS: A single view of the chest demonstrates the lungs to be symmetrically aerated without evidence of mas s, infiltrate or effusion. The cardiomediastinal contours are unremarkable. Osseous structures are intact. CONCLUSION: Normal examination for a patient of this age. No significant change has occurred. Hardeep Nugent MD on December 01, 2016 at 13:24 Board Certified Radiologist. This report was verified electronically.
[2016-12-01 13:48] LABS: BASOPHIL % 0.6 % (0.0-2.0); EOSINOPHIL # 0.1 TH/MM3 (0-0.4); EOSINOPHIL % 3.1 % (0.0-4.0); HEMATOCRIT 28.3 % (39.0-51.0); HEMO FLAGS DIFF FINAL; LYMPH % 30.7 % (9.0-44.0); LYMPHOCYTE # 1.2 TH/MM3 (1.0-4.8); MEAN CELL VOLUME 83.3 FL (80.0-100.0); MEAN CORPUSCULAR HEMOGLOBIN 26.8 PG (27.0-34.0); MEAN CORPUSCULAR HGB CONC 32.2 % (32.0-36.0); MONO % 13.8 % (0.0-8.0); NEUT % 51.8 % (16.0-70.0); PLATELET COUNT 116 TH/MM3 (150-450); RED CELL DISTRIBUTION WIDTH 13.1 % (11.6-17.2); WHITE BLOOD COUNT 3.8 TH/MM3 (4.0-11.0)
[2016-12-01 14:00] LABS: ANION GAP 8 MEQ/L (5-15); AST (GOT) 39 U/L (15-37); BICARBONATE 29.3 MEQ/L (21.0-32.0); BLOOD UREA NITROGEN 13 MG/DL (7-18); CHLORIDE 99 MEQ/L (98-107); GLOMERULAR FILTRATION RATE 104 ML/MIN (>89); POTASSIUM 3.5 MEQ/L (3.5-5.1); SODIUM (NA) 136 MEQ/L (136-145)
[2016-12-01 14:04] LABS: ALKALINE PHOSPHATASE 49 U/L (45-117); ALT (GPT) 25 U/L (12-78); TOTAL BILIRUBIN ADULT 0.6 MG/DL (0.2-1.0)
[2016-12-01 14:20] VITALS: BP 110/64; PULSE 83; RESP 16; O2SAT 97
[2016-12-01] MEDS ORDERED: IOHEXOL 350 MG/ML 10 ML VIAL (for RAD DIAG) IV ONE (14:34)
--- NOTE | 2016-12-01 15:15 | RADRPT ---
EXAM DATE/TIME: 12/01/2016 14:29 [facility] COMPARISON: CT ABDOMEN & PELVIS W CONTRAST, May 07, 2015, 20:44. INDICATIONS : Nausea, vomiting and diarrhea for 3 days. IV CONTRAST: 80 cc Omnipaque 350 (iohexol) IV ORAL CONTRAST: No oral contrast ingested. RADIATION DOSE: 5.39 CTDIvol (mGy) MEDICAL HISTORY : Hypertension. HIV. SURGICAL HISTORY : ENCOUNTER: Initial ACUITY: 1 day PAIN SCALE: 1/10 LOCATION: diffuse abdomen TECHNIQUE: Volumetric scanning of the abdomen and pelvis was performed. Using automated exposure control and ad justment of the mA and/or kV according to patient size, radiation dose was kept as low as reasonably achievable to obtain optimal diagnostic quality images. FINDINGS: LOWER LUNGS: The visualized lower lungs are clear. LIVER: Homogeneous density without lesion. There is focal fat adjacent to the falciform ligament. There is no dilation of the biliary tree. No calcified gallstones. SPLEEN: Normal size without lesion. PANCREAS: Within normal limits. KIDNEYS: Normal in size and shape. There is no mass, stone or hydronephrosis. ADRENAL GLANDS: Within normal limits. VASCULAR: There is no aortic aneurysm. BOWEL/MESENTERY: The stomach, small bowel, and colon demonstrate no acute abnormality. There is no free intraperitone al air or fluid. Appendix is normal. ABDOMINAL WALL: Within normal limits. RETROPERITONEUM: There is no lymphadenopathy. BLADDER: No wall thickening or mass. REPRODUCTIVE: Within normal limits. INGUINAL: There is no lymphadenopathy or hernia. MUSCULOSKELETAL: No acute abnormality is identified. CONCLUSION: No acute finding is identified within the abdomen or pelvis. Farrukh Erwin MD on December 01, 2016 at 15:09 Board Certified Radiologist. This report was verified electronically.
[2016-12-01] MEDS ORDERED: ZOFR4TAB PO (15:17)
--- NOTE | 2016-12-01 15:22 | PD ---
Data Data Last Documented VS Vital Signs Date Time Temp Pulse Resp B/P Pulse Ox O2 Delivery O2 Flow Rate FiO2 12/01/16 14:20 83 16 110/64 97 Room Air 12/01/16 11:50 98.2 Orders Complete Blood Count With Diff (12/01/16 12:33) Comprehensive Metabolic Panel (12/01/16 12:33) Lactic Acid Sepsis Protocol (12/01/16 12:33) Lipase (12/01/16 12:33) Urinalysis - C+S If Indicated (12/01/16 12:33) Influenzae A/B Antigen (12/01/16 12:33) Blood Culture (12/01/16 12:33) Chest, Single Ap (12/01/16 12:33) Ecg Monitoring (12/01/16 12:33) Iv Access Insert/Monitor (12/01/16 12:33) Oximetry (12/01/16 12:33) Ondansetron Inj (Zofran Inj) (12/01/16 12:45) Sodium Chlor 0.9% 1000 Ml Inj (Ns 1000 M (12/01/16 12:33) Ct Abd/Pel W Iv Contrast(Rout) (12/01/16 12:39) Iohexol 350 Inj (Omnipaque 350 Inj) (12/01/16 14:34) Labs Laboratory Tests Test 12/01/16 12/01/16 12:50 13:15 Urine Color YELLOW Urine Turbidity CLEAR Urine pH 6.5 Urine Specific [place] 1.024 Urine Protein 30 mg/dL Urine Glucose (UA) NEG mg/dL Urine Ketones NEG mg/dL Urine Occult Blood NEG Urine Nitrite NEG Urine Bilirubin NEG Urine Urobilinogen LESS THAN 2.0 MG/DL Urine Leukocyte Esterase NEG Urine RBC 1 /hpf Urine WBC 1 /hpf Urine Squamous Epithelial <1 /hpf Cells Urine Hyaline Casts 1 /lpf Urine Mucus FEW /lpf Microscopic Urinalysis Comment CATH-CULT NOT IND Lactic Acid Level 1.5 mmol/L White Blood Count 3.8 TH/MM3 Red Blood Count 3.40 MIL/MM3 Hemoglobin 9.1 GM/DL Hematocrit 28.3 % Mean Corpuscular Volume 83.3 FL Mean Corpuscular Hemoglobin 26.8 PG Mean Corpuscular Hemoglobin 32.2 % Concent Red Cell Distribution Width 13.1 % Platelet Count 116 TH/MM3 Mean Platelet Volume 8.1 FL Neutrophils (%) (Auto) 51.8 % Lymphocytes (%) (Auto) 30.7 % Monocytes (%) (Auto) 13.8 % Eosinophils (%) (Auto) 3.1 % Basophils (%) (Auto) 0.6 % Neutrophils # (Auto) 2.0 TH/MM3 Lymphocytes # (Auto) 1.2 TH/MM3 Monocytes # (Auto) 0.5 TH/MM3 Eosinophils # (Auto) 0.1 TH/MM3 Basophils # (Auto) 0.0 TH/MM3 CBC Comment DIFF FINAL Differential Comment Sodium Level 136 MEQ/L Potassium Level 3.5 MEQ/L Chloride Level 99 MEQ/L Carbon Dioxide Level 29.3 MEQ/L Anion Gap 8 MEQ/L Blood Urea Nitrogen 13 MG/DL Creatinine 0.97 MG/DL Estimat Glomerular Filtration 104 ML/MIN Rate Random Glucose 77 MG/DL Calcium Level 8.3 MG/DL Total Bilirubin 0.6 MG/DL Aspartate Amino Transf 39 U/L (AST/SGOT) Alanine Aminotransferase 25 U/L (ALT/SGPT) Alkaline Phosphatase 49 U/L Total Protein 7.6 GM/DL Albumin 3.1 GM/DL Lipase 344 U/L MDM Supervised Visit with MARILEE: Yes Narrative Course I, Dr. Hernandez, have reviewed the advance practice practioner's documentation and am in agreement, met with the patient face to face, made the diagnosis, and the medical decision making was done by me. *My assessment and Findings: 41-year-old female with history of HIV with last CD4 count 2 years ago on file in the 20s here with complaint of 3 days of diffuse abdominal pain, nausea vomiting diarrhea. Abdominal examination is benign, clear to auscultation bilaterally. No obvious rash or skin lesion seen on exam. Differential includes viral syndrome, gastroenteritis. Less likely peritoneal pathology given his benign abdominal examination but with history of his immunosuppression will obtain imaging. Laboratory workup and CT of the abdomen and pelvis was negative. Patient was reassured and encouraged to follow up with outpatient HIV/infectious disease physician. Scripts Ondansetron (Zofran)4 Mg Tab4 Mg PO Q6HR PRN (NAUSEA OR VOMITING) #10 TAB Ref 0 Prov:Anila Hernandez MD 12/01/16 Anila Hernandez MD December 01, 2016 15:22
== END 2016-12-01 15:38 | disposition home or self-care (01) ==
LOC: MERGE 11:48 → NEPD 11:48
DX: K52.9 Noninfective gastroenteritis and colitis, unspecified (principal); D61.818 Other pancytopenia; R05 Cough; R09.3 Abnormal sputum; R53.83 Other fatigue; M79.1 Myalgia; R06.02 Shortness of breath; I10 Essential (primary) hypertension; Z21 Asymptomatic human immunodeficiency virus [HIV] infection status; Z86.59 Personal history of other mental and behavioral disorders; Z87.09 Personal history of other diseases of the respiratory system
CPT/HCPCS: 71010; 74177; 80053; 81001; 83605; 83690; 85025; 87040; 87804; 96361; 96374; 99285; J2405; J7030; Q9967

== ENCOUNTER → 2016-12-16 | Outpatient (CLI) | payer OTHER ==
[~2016-12-16] MED LIST changes: -DIPH25CA PO; +PERM5CRE11 TOPICAL; +ZOFR4TAB PO
--- NOTE | 2016-12-16 16:03 | RADRPT ---
EXAM DATE/TIME: 12/16/2016 13:57 [facility] COMPARISON: No previous studies available for comparison. INDICATIONS : Evaluate for chronic otitis media. Left side. RADIATION DOSE: 52.84 CTDIvol (mGy) MEDICAL HISTORY : None SURGICAL HISTORY : None. ENCOUNTER: Initial ACUITY: 2 months PAIN SCORE: 5/10 LOCATION: Left temporal bones TECHNIQUE: Volumetric scanning of the temporal bone was performed. Using automated exposure cont rol and adjustment of the mA and/or kV according to patient size, radiation dose was kept as low as r easonably achievable to obtain optimal diagnostic quality images. FINDINGS: The patient has a history of chronic otitis media left ear when compared to the right. CT scan of the temporal bones was performed without contrast. RIGHT TEMPORAL BONE: The right mastoid is well aerated. Ossicles are in their normal anatomic position. There is good development of the mastoid air cells. There is very minimal debris in the e xternal canal with a thickened tympanic membrane. LEFT MASTOID AIR CELL: The left mastoid is fluid-filled but well developed. There is debris fillin g the left external canal with a thickened tympanic membrane. The ossicles are in normal anatomic po sition but surrounded by debris and/or fluid. There is no significant erosion. Careful review of the external canal reveals minimal erosion along the posterior margin of the canal. This can be seen with chronic otitis externa. Petrous apex is intact. CONCLUSION: 1. Debris in the external canal with minimal erosion suggesting chronic otitis externa. 2. Thickened drum with ossicles surrounded by soft tissue with some erosive changes. Cholesteatoma wo uld be a consideration as well. 3. Normal right mastoid Felix Fabian MD FACR on December 16, 2016 at 15:40 Board Certified Radiologist. This report was verified electronically.
== END ==
LOC: MERGE 12:44 → HRAD 12:44
PROVIDERS: ATTEND Family Medicine
DX: H91.92 Unspecified hearing loss, left ear (principal); H66.90 Otitis media, unspecified, unspecified ear
CPT/HCPCS: 70480

== ENCOUNTER → 2016-12-29 | Outpatient (CLI) | payer OTHER ==
[~2016-12-29] MED LIST changes: -PERM5CRE11 TOPICAL
--- NOTE | 2016-12-29 13:48 | RADRPT ---
EXAM DATE/TIME: 12/29/2016 13:21 [facility] COMPARISON: CHEST SINGLE AP, December 01, 2016, 13:04. INDICATIONS : Short of breath, thrush. MEDICAL HISTORY : Hypertension. HIV. SURGICAL HISTORY : None. ENCOUNTER: Initial ACUITY: 2 weeks PAIN SCORE: 0/10 LOCATION: Bilateral chest FINDINGS: PA and lateral views of the chest demonstrate the lungs to be symmetrically aerated without evidence of mass, infiltrate or effusion. The cardiomediastinal contours are unremarkable. Osseous structure s are intact. CONCLUSION: No acute disease. Farrukh Villegas MD on December 29, 2016 at 13:45 Board Certified Radiologist. This report was verified electronically.
== END ==
LOC: HRAD 12:48
DX: B20 Human immunodeficiency virus [HIV] disease (principal); E78.2 Mixed hyperlipidemia; B35.6 Tinea cruris; R21 Rash and other nonspecific skin eruption; N48.89 Other specified disorders of penis; E55.9 Vitamin D deficiency, unspecified; Z79.899 Other long term (current) drug therapy; Z20.2 Contact with and (suspected) exposure to infections with a predominantly sexual mode of transmission
CPT/HCPCS: 71020

== ENCOUNTER 2017-01-07 15:22 | Emergency (ER) | payer OTHER ==
[~2017-01-07] VITALS: Ht 172.7 cm; Wt 72.0 kg
[2017-01-07 15:24] VITALS: BP 120/79; PULSE 82; RESP 16; TEMP 98; O2SAT 100
[2017-01-07] MEDS ORDERED: PERM5CRE11 TOPICAL (16:30)
--- NOTE | 2017-01-07 16:30 | PD ---
HPI Chief Complaint: Skin Problem Time Seen by Provider: 16:28 Travel History International Travel<30 days: No Contact w/Intl Traveler<30days: No Traveled to known affect area: No History of Present Illness HPI 41-year-old male presents to the emergency Department with complaint of an itchy rash generalized to his body. Denies fever, vomiting. Denies new detergents, lotions, soaps, medications, foods, or mental exposures. No one else with rash. Has not taken any medications or drainage from his to the base symptoms. No other medical complaints. No other modifying factors or associated signs and symptoms. PFSH Past Medical History Anxiety: Yes Depression: Yes Diminished Hearing: No Gastrointestinal Disorders: No Genitourinary: No Hypertension: Yes Immune Disorder: Yes (HIV +) Respiratory: Yes (BRONCHITIS) Immunizations Current: Yes Migraines: Yes Past Surgical History Other Surgery: No Social History Alcohol Use: No Tobacco Use: No Substance Use: No Allergies-Medications (Allergen,Severity, Reaction): Coded Allergies: *MDRO Multi-Drug Resistant Organism (Verified Adverse Reaction, Unknown, ) MRSA PCR Screen positive 05/08/15; MRSA (groin-06/2015), (face-08/2015), (wrist-11/2015) Reported Meds & Prescriptions Reported Meds & Active Scripts Active Elimite Topical (Permethrin) 5% Cream 1 Applic TOPICAL ONCE Review of Systems Except as stated in HPI: all other systems reviewed are Neg Physical Exam Narrative GENERAL: Well-nourished, well-developed male patient, in no acute distress SKIN: Warm and dry. Generalized erythremic pimple-like rash to chest, abdomen, back, bilateral upper extremity, bilateral lower extremities; some areas appear excoriated. No areas with cellulitic process noted. HEAD: Atraumatic. Normocephalic. EYES: Pupils equal and round. No scleral icterus. No injection or drainage. ENT: Mucosa pink and moist. Airway patent. NECK: Trachea midline. CARDIOVASCULAR: Regular rate. RESPIRATORY: No accessory muscle use. GASTROINTESTINAL: Flat. MUSCULOSKELETAL: No obvious deformities. No clubbing. No cyanosis. No edema. NEUROLOGICAL: Awake and alert. Oriented 3. No obvious cranial nerve deficits. Motor grossly within normal limits. Normal speech. PSYCHIATRIC: Appropriate mood and affect; insight and judgment normal. Data Data Last Documented VS Vital Signs Date Time Temp Pulse Resp B/P Pulse Ox O2 Delivery O2 Flow Rate FiO2 01/07/17 15:24 98.0 82 16 120/79 100 Room Air MDM Medical Decision Making Medical Screen Exam Complete: Yes Emergency Medical Condition: Yes Medical Record Reviewed: Yes Differential Diagnosis Scabies, contact dermatitis, bedbugs Narrative Course 41-year-old male physical exam consistent with scabies rash. Patient is afebrile and nontoxic-appearing. Elimite cream prescribed for home. Instructed patient to follow up with primary care provider. Patient verbalizes understanding and agreement with treatment plan. Patient is medically cleared and stable for discharge. Discussed reasons to return to the emergency department. Patient agrees with treatment plan. The patients vital signs are stable and the patient is stable for outpatient follow-up and treatment. Patient discharged home, stable and in no acute distress. Diagnosis Primary Impression: Scabies Referrals: [facility] Assistant Scientist Primary Care Physician Patient Instructions: General Instructions, Scabies (ED) Additional Instructions: Elimite cream as directed; repeat in one week as needed Soaking in cool water or apply cool, wet washcloths to irritated areas to minimize itching Apply anti-itch creams, such as calamine lotion, to relieve pain and itching as needed Skut-[id number] antihistamines as needed and as directed to relieve allergic symptoms caused by scabies Wash all pillows, linens, blankets, etc. in hot water and dry in hot dryer Bag and all unwashable linens, [place] stuffed animals, etc. in a tightly sealed garbage bag for up to 2 weeks Follow-up with squaring machine operator Follow-up with primary care provider Return to the emergency department immediately with worsening of symptoms Med/Other Pt SpecificInfo: Prescription(s) given Scripts Permethrin Topical (Elimite Topical)5% Cream1 Applic TOPICAL ONCE #1 TUBE Ref 1 Prov:Jaqui Campos 01/07/17 Disposition: 01 DISCHARGE HOME Condition: Stable Jaqui Campos Jan 07, 2017 16:30
== END 2017-01-07 17:19 | disposition home or self-care (01) ==
LOC: NEPK 15:22
DX: B86 Scabies (principal); I10 Essential (primary) hypertension
CPT/HCPCS: 99283

== ENCOUNTER 2017-01-09 19:45 | Emergency (ER) | payer OTHER ==
[~2017-01-09 19:45] MED LIST changes: -AMOX500C PO; -CIPR500T2 PO; -DIVA250ER PO; +PERM5CRE11 TOPICAL; -ZOFR4TAB PO; -ZYPR10TA PO
== END 2017-01-09 20:28 | disposition left against medical advice (07) ==
LOC: PHED 19:45
DX: L08.9 Local infection of the skin and subcutaneous tissue, unspecified (principal)
CPT/HCPCS: 99281

== ENCOUNTER 2017-01-11 14:59 | Emergency (ER) | payer OTHER ==
[2017-01-11 15:06] VITALS: BP 131/61; PULSE 99; RESP 20; TEMP 99; O2SAT 100
[2017-01-11] MEDS ORDERED: DEXAMETHASONE SOD PHOS 4 MG/ML VIAL IM ONE (15:30)
--- NOTE | 2017-01-11 15:33 | PD ---
HPI Chief Complaint: Allergic/Adverse Reaction Time Seen by Provider: 15:05 Travel History International Travel<30 days: No Contact w/Intl Traveler<30days: No Traveled to known affect area: No History of Present Illness HPI 41-year-old male presents to the emergency room for evaluation of generalized itchy rash that has been present for the past 3 days. Patient states 4 days ago he came to the emergency room for itchy rash to his right volar wrist. He was prescribed permethrin. He filled the prescription the following day and applied it to his entire body at night. Took a shower and washed off the following morning. States shortly after he developed increasing rash and itchiness and lesions to his body especially on the abdomen and legs. Patient denies pain. Denies any other new exposures. Denies fever, chills, nausea, and vomiting. PFSH Past Medical History Anxiety: Yes Depression: Yes Diminished Hearing: No Gastrointestinal Disorders: No Genitourinary: No Hypertension: Yes Immune Disorder: Yes (HIV +) Respiratory: Yes (BRONCHITIS) Immunizations Current: Yes Migraines: Yes Past Surgical History Other Surgery: No Social History Alcohol Use: No Tobacco Use: No Substance Use: No Allergies-Medications (Allergen,Severity, Reaction): Coded Allergies: *MDRO Multi-Drug Resistant Organism (Verified Adverse Reaction, Unknown, ) MRSA PCR Screen positive 05/08/15; MRSA (groin-06/2015), (face-08/2015), (wrist-11/2015) Reported Meds & Prescriptions Reported Meds & Active Scripts Active Vistaril (Hydroxyzine Pamoate) 50 Mg Cap 50 Mg PO BID 7 Days Ivermectin 3 Mg Tab 19 Mg PO DAILY 5 Days Permethrin Topical 5% (Permethrin) 5% Cream 1 Applic TOPICAL ONCE Elimite Topical (Permethrin) 5% Cream 1 Applic TOPICAL ONCE Review of Systems Except as stated in HPI: all other systems reviewed are Neg Physical Exam Narrative GENERAL: Well-nourished, well-developed female in no acute distress. Afebrile. Ambulatory. SKIN: Focused skin assessment warm/dry. There is a maculopapular erythematous lesions to bilateral upper and lower extremities, chest, abdomen, face, neck, and scarce on the back. Moderate lichenification. Mild excoriations. No drainage. No evidence of secondary infection. HEAD: Normocephalic. EYES: No scleral icterus. No injection or drainage. NECK: Supple, trachea midline. No JVD or lymphadenopathy. CARDIOVASCULAR: Regular rate and rhythm without murmurs, gallops, or rubs. RESPIRATORY: Breath sounds equal bilaterally. No accessory muscle use. PSYCHIATRIC: No delusional thought processes. No hallucinations. Data Data Last Documented VS Vital Signs Date Time Temp Pulse Resp B/P Pulse Ox O2 Delivery O2 Flow Rate FiO2 01/11/17 15:06 99.0 99 20 131/61 100 Orders Dexamethasone Inj (Decadron Inj) (01/11/17 15:30) [facility] Medical Decision Making Medical Screen Exam Complete: Yes Emergency Medical Condition: Yes Medical Record Reviewed: Yes Differential Diagnosis Scabies, crusted scabies, allergic reaction Narrative Course 41-year-old male presents to the emergency room for evaluation of itchy rash to his entire body started 4 days ago. Patient came to the emergency room and was diagnosed with scabies and given prescription for permethrin. States after using the medication he developed increasing itchiness and worsening rash. Physical exam reveals severe scabies throughout upper and lower extremities, on chest, abdomen, head, and scantily on back. There is lichenification and excoriations. No urticaria or evidence of allergic reaction. Given patient's history of HIV, this is likely crusted scabies and will need more aggressive treatment than what he was originally prescribed. Patient was given the CDC recommendations for crusted scabies and told to follow-up with a treasury manager for skin scraping. Told to return for worsening symptoms. He understands and agrees to plan. Diagnosis Primary Impression: Crusted scabies Referrals: [facility] Primary Care Physician Patient Instructions: General Instructions, Scabies (ED) Additional Instructions: Rest and drink plenty of fluids. Apply Permethrin cream daily for 7 days then twice weekly until cured. Take ivermectin on day 1 (today), 2(tomorrow), 8, 9, and 15. [place] will help with itching. Vistaril as directed, as needed for itching. Follow-up with a primary care physician. Return to the emergency room for worsening symptoms. Scripts Hydroxyzine Pamoate (Vistaril)50 Mg Cap50 Mg PO BID 7 Days Ref 0 Prov:Silas Herron MD 01/11/17 Ivermectin 3 Mg Tab19 Mg PO DAILY 5 Days Prov:Silas Herron MD 01/11/17 Permethrin Topical 5% 5% Cream1 Applic TOPICAL ONCE #1 TUBE Ref 0 Prov:Silas Herron MD 01/11/17 Disposition: 01 DISCHARGE HOME Condition: Stable Radha Peterson Jan 11, 2017 15:32
[2017-01-11] MEDS ORDERED: IVER5TAB PO (15:37)
[2017-01-11] MEDS ORDERED: PERM5CRE TOPICAL (15:37)
[2017-01-11] MEDS ORDERED: VIST50CA PO (15:40)
== END 2017-01-11 15:47 | disposition home or self-care (01) ==
LOC: PHEFT 14:59
DX: B86 Scabies (principal); Z21 Asymptomatic human immunodeficiency virus [HIV] infection status; Z86.59 Personal history of other mental and behavioral disorders; Z87.09 Personal history of other diseases of the respiratory system
CPT/HCPCS: 96372; 99284; J1100

== ENCOUNTER 2017-01-20 13:04 | Emergency (ER) | payer OTHER ==
[~2017-01-20] VITALS: Ht 172.7 cm; Wt 72.5 kg
[~2017-01-20 13:04] MED LIST changes: +IVER5TAB PO; +PERM5CRE TOPICAL; +VIST50CA PO
[2017-01-20 13:08] VITALS: BP 120/76; PULSE 108; RESP 20; TEMP 97.9; O2SAT 100
--- NOTE | 2017-01-20 13:30 | PD ---
HPI Chief Complaint: Skin Problem Time Seen by Provider: 13:30 Travel History International Travel<30 days: No Contact w/Intl Traveler<30days: No Traveled to known affect area: No History of Present Illness HPI 41-year-old male presents to emergency department for evaluation of persistent itching and fear that his scabies or not improving. Patient has a diagnosis crusted scabies. He has not finished his treatment. In fact he just started it on the and has 3 more doses of his medication left. Denies any new exposures. No fever or chills. He was concerned that they're not getting better. However he is not using the Elimite cream because he states he is allergic to it. History Social History Alcohol Use: No Tobacco Use: No Allergies-Medications (Allergen,Severity, Reaction): Coded Allergies: *MDRO Multi-Drug Resistant Organism (Verified Adverse Reaction, Unknown, ) MRSA PCR Screen positive 05/08/15; MRSA (groin-06/2015), (face-08/2015), (wrist-11/2015) Reported Meds & Prescriptions Reported Meds & Active Scripts Active Vistaril (Hydroxyzine Pamoate) 50 Mg Cap 50 Mg PO BID 7 Days Ivermectin 3 Mg Tab 19 Mg PO DAILY 5 Days Permethrin Topical 5% (Permethrin) 5% Cream 1 Applic TOPICAL ONCE Elimite Topical (Permethrin) 5% Cream 1 Applic TOPICAL ONCE Review of Systems Except as stated in HPI: all other systems reviewed are Neg Physical Exam Narrative GENERAL: Thin male patient in no acute distress SKIN: Focused skin assessment warm/dry. Multiple subcentimeter low scattered lesions on the extremities, some with crusting and some not. Some are excoriated. No significant erythema or edema. HEAD: Normocephalic. EYES: No scleral icterus. No injection or drainage. NECK: Supple, trachea midline. No JVD or lymphadenopathy. CARDIOVASCULAR: Elevated rate and rhythm without murmurs, gallops, or rubs. RESPIRATORY: Breath sounds equal bilaterally. No accessory muscle use. Data Data Last Documented VS Vital Signs Date Time Temp Pulse Resp B/P Pulse Ox O2 Delivery O2 Flow Rate FiO2 01/20/17 13:08 97.9 108 20 120/76 100 Room Air MDM Medical Screen Exam Complete: Yes Emergency Medical Condition: No Differential Diagnosis Crusted scabies Narrative Course 41-year-old male presents to the emergency department. Patient is currently being treated for crusted scabies. He has not yet finished his treatment. I' ve encouraged him to complete the treatment and counseling them on how to take care of his bedding and clothing to reduce reinfection. He verbalizes understanding. At this time there are no urgent or emergent needs medical intervention identified. A medical screening exam was performed: At the time of evaluation the presenting medical condition was determined not to be of an emergent nature. The patient was given the option of receiving additional care, but declined. Patient was given options for additional community resources from which to obtain care. The Patient Has Been advised to seek medical attention for their presenting complaint. The patient has been advised to return to the ER at any time if an emergent condition develops. Primary Impression: Scabies Additional Impression: Encounter for medical screening examination Condition: Haydee Woods Jan 20, 2017 13:30
== END 2017-01-20 13:46 | disposition left against medical advice (07) ==
LOC: NEPK 13:04
DX: B86 Scabies (principal); Z79.899 Other long term (current) drug therapy
CPT/HCPCS: 99281

== ENCOUNTER 2017-01-23 14:41 | Emergency (ER) | payer OTHER ==
[~2017-01-23] VITALS: Ht 172.7 cm; Wt 75.0 kg
[2017-01-23 14:42] VITALS: BP 151/86; PULSE 106; RESP 15; TEMP 98.3; O2SAT 97
--- NOTE | 2017-01-23 14:56 | PD ---
HPI . rash to neck, chin and back of neck since Chief Complaint: Skin Problem Time Seen by Provider: 14:51 Travel History International Travel<30 days: No Contact w/Intl Traveler<30days: No Traveled to known affect area: No History of Present Illness HPI 41-year-old male with history of HIV here with complaints of worsening skin infection to his neck, chin and back of his neck. Apparently patient was diagnosed with crusted scabies and taking medication for this, however he went to his infectious disease specialist and was told he had fungus and prescribed terbinafine. He tells me that ever since he started terbinafine on that he is now experiencing some more itching on his neck, chin and back of his neck. He has been scratching and causing openings to his skin around his neck, back of neck and chin. He denies any fever or chills. He has no other complaints. PFSH Past Medical History Anxiety: Yes Depression: Yes Diminished Hearing: No Gastrointestinal Disorders: No Genitourinary: No Hypertension: Yes Immune Disorder: Yes (HIV +) Respiratory: Yes (BRONCHITIS) Immunizations Current: Yes Migraines: Yes Past Surgical History Other Surgery: No Social History Alcohol Use: No Tobacco Use: No Substance Use: No Allergies-Medications (Allergen,Severity, Reaction): Coded Allergies: *MDRO Multi-Drug Resistant Organism (Verified Adverse Reaction, Unknown, ) MRSA PCR Screen positive 05/08/15; MRSA (groin-06/2015), (face-08/2015), (wrist-11/2015) Uncoded Allergies: premetherin (Allergy, Unknown, 01/23/17) Reported Meds & Prescriptions Reported Meds & Active Scripts Active Triamcinolone Topical (Triamcinolone Acetonide) 0.1% Lotn 1 Applic TOPICAL QID Bactrim DS (Sulfamethoxazole-Trimethoprim) 800-160 Mg Tab 1 Tab PO BID Vistaril (Hydroxyzine Pamoate) 50 Mg Cap 50 Mg PO BID 7 Days Ivermectin 3 Mg Tab 19 Mg PO DAILY 5 Days Review of Systems General / Constitutional: No: Fever Eyes: No: Visual changes HENT: No: Headaches Cardiovascular: No: Chest Pain or Discomfort Respiratory: No: Shortness of Breath Gastrointestinal: No: Abdominal Pain Genitourinary: No: Dysuria Musculoskeletal: No: Pain Skin: Positive Rash, Positive Itching Neurologic: No: Weakness Psychiatric: No: Depression Endocrine: No: Polydipsia Hematologic/Lymphatic: No: Easy Bruising Physical Exam Narrative GENERAL: AAO x 3, no acute distress, Well-nourished, well-developed patient. SKIN: Warm and dry. No visible rashes or bruising. multiple excoriations to the anterior neck, small excoriation to posterior neck, multiple excoriations to the chin, erythema without purulence HEAD: Normocephalic and atraumatic. EYES: No scleral icterus. No injection or drainage. EOM intact, PERRLA ENT: No nasal drainage noted. Mucous membranes pink. Airway patent. NECK: Supple, trachea midline. No JVD. CARDIOVASCULAR: Regular rate and rhythm without murmurs, gallops, or rubs. RESPIRATORY: Breath sounds equal bilaterally. No accessory muscle use. No rhonchi or rales. GASTROINTESTINAL: Abdomen soft, non-tender, nondistended. EXTREMITIES: No cyanosis or edema. BACK: No obvious deformity. NEURO: CN II-12 intact, PSYCH: AAO x 3, normal affect. Data Data Last Documented VS Vital Signs Date Time Temp Pulse Resp B/P Pulse Ox O2 Delivery O2 Flow Rate FiO2 01/23/17 14:42 98.3 106 15 151/86 97 MDM Medical Decision Making Medical Screen Exam Complete: Yes Emergency Medical Condition: Yes Medical Record Reviewed: Yes Differential Diagnosis scabies, drug reaction, early cellulitis Narrative Course 41 yr old male here with c/o itching to his chin, neck and back of his neck for the past few days. Exam reveals multiple excoriations. We have cleaned the area off and provided sterile dressings. Case discussed with Dr. Hernandez. We recommend triamcinolone cream and antibiotics with HIV status. F/U with ID and the community clinic. Diagnosis Primary Impression: Multiple excoriations Patient Instructions: General Instructions Additional Instructions: Follow-up with your infectious disease specialist. Please try to do this in the next 2-3 days. You can also follow-up with Dr. Trent in the community clinic. Scripts Triamcinolone Topical 0.1% Lotn1 Applic TOPICAL QID #60 ML Ref 0 Prov:Anila Hernandez MD 01/23/17 Sulfamethoxazole-Trimethoprim (Bactrim DS)800-160 Mg Tab1 Tab PO BID #20 TAB Prov:Anila Hernandez MD 01/23/17 Disposition: 01 DISCHARGE HOME Condition: Stable Elizabeth Echeverria Jan 23, 2017 14:55
[2017-01-23] MEDS ORDERED: TRIA0.1L TOPICAL (15:01)
[2017-01-23] MEDS ORDERED: BACT800T5 PO (15:01)
== END 2017-01-23 15:50 | disposition home or self-care (01) ==
LOC: NEPD 14:41
DX: B20 Human immunodeficiency virus [HIV] disease (principal)
CPT/HCPCS: 99284

== ENCOUNTER 2017-01-28 12:27 | Emergency (ER) | payer OTHER ==
[~2017-01-28] VITALS: Ht 172.7 cm; Wt 65.0 kg
[~2017-01-28 12:27] MED LIST changes: +BACT800T5 PO; -PERM5CRE TOPICAL; -PERM5CRE11 TOPICAL; +TRIA0.1L TOPICAL
[2017-01-28 13:05] VITALS: BP 116/69; PULSE 85; RESP 16; TEMP 98.1; O2SAT 100
[2017-01-28 14:03] LABS: AMPHETAMINE, URINE NEG (NEG); BARBITURATES, URINE NEG (NEG); COCAINE, URINE NEG (NEG)
--- NOTE | 2017-01-28 14:05 | PD ---
HPI Chief Complaint: Psychiatric Symptoms Time Seen by Provider: 14:01 Travel History International Travel<30 days: No Contact w/Intl Traveler<30days: No Traveled to known affect area: No History of Present Illness HPI 41-year-old male that presents to the ED for eval edition psychiatric illness. Patient was [place] acted by police after apparently he was acting psychotic. Patient was seen and Dewey Alonso and was sent here. Unclear etiology as to why. He does apparently have a history of HIV and was recently evaluated on the for rash to his face and his been taking antibiotics given to him. He denies any other medical issues. Takes no other medications. No chest pain or shortness of breath. Patient apparently has a history of psychosis. No other medical history noted. He denies any homicidal or suicidal ideation. He is somewhat of a poor historian. PFSH Past Medical History Anxiety: Yes Depression: Yes Diminished Hearing: No Gastrointestinal Disorders: No Genitourinary: No Hypertension: Yes Immune Disorder: Yes (HIV +) Respiratory: Yes (BRONCHITIS) Immunizations Current: Yes Migraines: Yes Past Surgical History Other Surgery: No Social History Alcohol Use: No Tobacco Use: No Substance Use: No Allergies-Medications (Allergen,Severity, Reaction): Coded Allergies: *MDRO Multi-Drug Resistant Organism (Verified Adverse Reaction, Unknown, ) MRSA PCR Screen positive 05/08/15; MRSA (groin-06/2015), (face-08/2015), (wrist-11/2015) Uncoded Allergies: premetherin (Allergy, Unknown, 01/23/17) Reported Meds & Prescriptions Reported Meds & Active Scripts Active Triamcinolone Topical (Triamcinolone Acetonide) 0.1% Lotn 1 Applic TOPICAL QID Bactrim DS (Sulfamethoxazole-Trimethoprim) 800-160 Mg Tab 1 Tab PO BID Vistaril (Hydroxyzine Pamoate) 50 Mg Cap 50 Mg PO BID 7 Days Ivermectin 3 Mg Tab 19 Mg PO DAILY 5 Days Review of Systems Except as stated in HPI: all other systems reviewed are Neg Physical Exam Narrative GENERAL: SKIN: Warm and dry. Patient has an erythematous rash with yellow crusting noted on the chin as well as the back of the neck. Slightly painful but no sign of abscess. HEAD: Atraumatic. Normocephalic. EYES: Pupils equal and round. No scleral icterus. No injection or drainage. ENT: No nasal bleeding or discharge. Mucous membranes pink and moist. Tongue is midline. no uvula deviation NECK: Trachea midline. No JVD. CARDIOVASCULAR: Regular rate and rhythm. No murmurs, S3, S4. RESPIRATORY: No accessory muscle use. Clear to auscultation. Breath sounds equal bilaterally. GASTROINTESTINAL: Abdomen soft, non-tender, nondistended. Hepatic and splenic margins not palpable. MUSCULOSKELETAL: Extremities without clubbing, cyanosis, or edema. No obvious deformities. NEUROLOGICAL: Awake and alert. No obvious cranial nerve deficits. Motor grossly within normal limits. Five out of 5 muscle strength in the arms and legs. Normal speech. PSYCHIATRIC: Appropriate mood and affect; insight and judgment normal. Data Data Last Documented VS Vital Signs Date Time Temp Pulse Resp B/P Pulse Ox O2 Delivery O2 Flow Rate FiO2 01/28/17 13:05 98.1 85 16 116/69 100 Orders Complete Blood Count With Diff (01/28/17 12:46) Comprehensive Metabolic Panel (01/28/17 12:46) Psych Screen (01/28/17 12:46) Drug Screen, Random Urine (01/28/17 12:46) Alcohol (Ethanol) (01/28/17 12:46) MDM Medical Decision Making Medical Screen Exam Complete: Yes Emergency Medical Condition: Yes Medical Record Reviewed: Yes Differential Diagnosis Depression versus suicidal ideation versus anxiety versus adjustment disorder versus mood disorder versus bipolar disorder versus schizophrenia versus paranoid disorder versus psychosis versus substance abuse versus alcohol abuse versus alcohol induced psychosis versus homicidality addition versus cutting versus personality disorder Narrative Course 41-year-old male that presents to the ED for evaluation of psychiatric illness. No sign of acute medical distress. Patient does have an impetigo and states compliance with his medications. This time patient will have blood work. Patient will be medically clear. Okay to be seen by psych. Mental health screening was discussed with the patient. Diagnosis Primary Impression: Psychosis Qualified Code: F23 - Brief psychotic disorder Additional Impression: Joey Wolfe Jan 28, 2017 14:05
[2017-01-28 14:08] LABS: AUTOMATED NEUTROPHIL # 1.9 TH/MM3 (1.8-7.7); BASOPHIL % 0.4 % (0.0-2.0); EOSINOPHIL # 0.3 TH/MM3 (0-0.4); HEMATOCRIT 30.4 % (39.0-51.0); HEMO FLAGS DIFF FINAL; LYMPHOCYTE # 0.8 TH/MM3 (1.0-4.8); MEAN CELL VOLUME 82.3 FL (80.0-100.0); MEAN CORPUSCULAR HEMOGLOBIN 27.6 PG (27.0-34.0); MEAN CORPUSCULAR HGB CONC 33.6 % (32.0-36.0); MONO % 10.4 % (0.0-8.0); NEUT % 56.2 % (16.0-70.0); PLATELET COUNT 186 TH/MM3 (150-450); RED BLOOD COUNT 3.69 MIL/MM3 (4.50-5.90); RED CELL DISTRIBUTION WIDTH 14.6 % (11.6-17.2); WHITE BLOOD COUNT 3.4 TH/MM3 (4.0-11.0)
[2017-01-28 14:10] LABS: ALT (GPT) 19 U/L (12-78); ANION GAP 8 MEQ/L (5-15); AST (GOT) 34 U/L (15-37); BICARBONATE 25.4 MEQ/L (21.0-32.0); BLOOD UREA NITROGEN 16 MG/DL (7-18); CHLORIDE 106 MEQ/L (98-107); GLOMERULAR FILTRATION RATE 81 ML/MIN (>89); POTASSIUM 3.7 MEQ/L (3.5-5.1); SODIUM (NA) 139 MEQ/L (136-145)
[2017-01-28 14:12] LABS: ALKALINE PHOSPHATASE 74 U/L (45-117); TOTAL BILIRUBIN ADULT 0.4 MG/DL (0.2-1.0)
[2017-01-28] MEDS ORDERED: LAMI250T PO (14:38)
[2017-01-28] MEDS ORDERED: HYDR50TA94 PO (14:38)
[2017-01-28 17:24] VITALS: BP 112/68; PULSE 81; RESP 18; TEMP 98.6; O2SAT 98
[2017-01-28 22:00] VITALS: BP 123/67; PULSE 63; RESP 18; O2SAT 98
[2017-01-29 04:27] VITALS: BP 116/70; PULSE 86; RESP 16; O2SAT 99
[2017-01-29 06:12] VITALS: BP 118/67; PULSE 78; RESP 18; O2SAT 98
[2017-01-29 10:38] VITALS: BP 118/67; PULSE 78; RESP 18; O2SAT 98
--- NOTE | 2017-01-29 10:39 | PD ---
History of Present Illness Chief Complaint: Psychiatric Symptoms Time Seen by Provider: 10:20 Travel History International Travel<30 Days: No Contact w/Intl Traveler<30days: No Known affected area: No Legal Status Legal Status: Ayon Act Ayon Act Signed By: ALEXIS initated by: JAYSON Murrieta. [facility], [address] History of Present Illness: History of Present Illness HPI 41-year-old male with reported history of depression and anxiety that presents to the ED under a Ayon Act.The police found him on the streets and apparently he was acting psychotic. Patient was taken to [facility] and was BA there sent here. His BA alleges that he is under a lot of stress, that he rates his depression as 10 out of 10, experiencing hallucinations, suicidal and paranoid. Apparently the patient finds himself homeless after he was give a 3 day notice to vacate from his apartment. EMR is reviewed. One previous visit to [facility] for anxiety. Current toxicology is negative.He is monitored in J pod and presented no behavioral concerns,no suicidality and no indication of any psychotic symptoms. Eric case management specialist for [facility] has been involved in assisting client in connecting a gain with [facility] case management specialist. The patient is seen with RAMOS Winn as well as with Eric. He is asleep but awakens easily. Oriented male, speech is clear and logical. Does not appear to be internally stimulated. He states " I told the counselor that I was stressed and that i was thinking of running into traffic because I was frustrated. I have been trying to get help. He denies current suicidal ideation , intent or plan. He verbalizes no symptom of depression although he appears withdrawn. He reports that he ran out of psychiatric medication several months go and has not gone back to [facility] due to not having money. He describes his hallucinations as hearing his name called and seeing spots. Denies use of any substance COUNT INCLUDES THE [facility] Past Medical History Anxiety: Yes Depression: Yes Diminished Hearing: No Gastrointestinal Disorders: No Genitourinary: No Hypertension: Yes Immune Disorder: Yes (HIV +) Respiratory: Yes (BRONCHITIS) Immunizations Current: Yes Migraines: Yes Past Surgical History Other Surgery: No Psychiatric History Psychiatric History Hx Psychiatric Treatment: outpatient tretament at [facility]. Jeannette angelo psychiatric tretametn No previous sucide attemtp. History of Inpatient Treatment: Yes Guns or firearms in home: No Social History Single homeless male. Unemployed. Hx Alcohol Use: No Hx Tobacco Use: No Hx Substance Use: No Hx of Substance Use Treatment: No Family Psychiatric History Negative Allergies-Medications (Allergen,Severity, Reaction): Coded Allergies: *MDRO Multi-Drug Resistant Organism (Verified Adverse Reaction, Unknown, ) MRSA PCR Screen positive 05/08/15; MRSA (groin-06/2015), (face-08/2015), (wrist-11/2015) Uncoded Allergies: premetherin (Allergy, Unknown, 01/23/17) Reported Meds & Prescriptions Reported Meds & Active Scripts Active Reported Lamisil (Terbinafine) 250 Mg Tab 250 Mg PO DAILY Hydroxyzine HCl 50 Mg Tab 50 Mg PO BID Review of Systems Constitutional: COMPLAINS OF: Weight loss Endocrine: DENIES: Heat/cold intolerance, Polydipsia, Polyuria, Polyphagia Eyes: DENIES: Blurred vision, Diplopia, Eye inflammation, Eye pain, Vision loss , Photosensitivity, Double Vision Ears, nose, mouth, throat: DENIES: Tinnitus, Hearing loss, Vertigo, Nasal discharge, Oral lesions, Throat pain, Hoarseness, Ear Pain, Running Nose, Epistaxis, Sinus Pain, Toothache, Odynophagia Respiratory: DENIES: Apneas, Cough, Snoring, Wheezing, Hemoptysis, Sputum production, Shortness of breath Cardiovascular: DENIES: Chest pain, Palpitations, Syncope, Dyspnea on Exertion , PND, Lower Extremity Edema, Orthopnea, Claudication Gastrointestinal: DENIES: Abdominal pain, Black stools, Bloody stools, Constipation, Diarrhea, Nausea, Vomiting, Difficulty Swallowing, Anorexia Genitourinary: DENIES: Sexual dysfunction, Urinary frequency, Urinary incontinence, Urgency, Hematuria, Dysuria, Nocturia, Penile Discharge, Testicular Pain, Testicular Swelling Musculoskeletal: DENIES: Joint pain, Muscle aches, Stiffness, Joint Swelling, Back pain, Neck pain Integumentary: COMPLAINS OF: Pruritus, Rash Hematologic/lymphatic: DENIES: Bruising, Lymphadenopathy Immunologic/allergic: DENIES: Eczema, Urticaria Neurologic: DENIES: Abnormal gait, Headache, Localized weakness, Paresthesias, Seizures, Speech Problems, Tremor, Poor Balance Psychiatric: DENIES: Anxiety, Confusion, Mood changes, Depression, Hallucinations, Agitation, Suicidal Ideation, Homicidal Ideation, Delusions Exam Alert: Yes [place]: Person (ox4) Mood: Calm Affect: Restricted Speech: Clear, Logical Eye Contact: Indirect Memory Intact: Comment (No impairmetn) Hallucinations: Other (Hears his name called) Delusions: No Suicidal: Ideation (Negative) Homicidal: Ideation (Negative) Insight/Judgement Poor. not impaired. [facility] Medical Decision Making Medical Record Reviewed: Yes Assessment/Plan 41-year-old male with reported history of depression and anxiety that presents to the ED under a Ayon Act.The police found him on the streets and apparently he was acting psychotic. Patient was taken to [facility] and was BA there sent here. Patient in J pod presented no significant psychiatric symptomatology. No suicidality adn no psychosis. He is future oriented and has been connected with [facility] case management specialist. Marlon BA. Follow up with [facility]. Orders Complete Blood Count With Diff (01/28/17 12:46) Comprehensive Metabolic Panel (01/28/17 12:46) Psych Screen (01/28/17 12:46) Drug Screen, Random Urine (01/28/17 12:46) Alcohol (Ethanol) (01/28/17 12:46) Diet Regular Basic (01/28/17 Dinner) Diet Regular Basic (01/29/17 Breakfast) Results Vital Signs Date Time Temp Pulse Resp B/P Pulse Ox O2 Delivery O2 Flow Rate FiO2 01/29/17 06:12 78 18 118/67 98 Room Air 01/29/17 04:27 86 16 116/70 99 Room Air 01/28/17 22:00 63 18 123/67 98 Room Air 01/28/17 17:24 98.6 81 18 112/68 98 01/28/17 13:05 98.1 85 16 116/69 100 Laboratory Tests Test 01/28/17 01/28/17 13:25 13:38 White Blood Count 3.4 Red Blood Count 3.69 Hemoglobin 10.2 Hematocrit 30.4 Mean Corpuscular Volume 82.3 Mean Corpuscular Hemoglobin 27.6 Mean Corpuscular Hemoglobin 33.6 Concent Red Cell Distribution Width 14.6 Platelet Count 186 Mean Platelet Volume 8.0 Neutrophils (%) (Auto) 56.2 Lymphocytes (%) (Auto) 24.0 Monocytes (%) (Auto) 10.4 Eosinophils (%) (Auto) 9.0 Basophils (%) (Auto) 0.4 Neutrophils # (Auto) 1.9 Lymphocytes # (Auto) 0.8 Monocytes # (Auto) 0.3 Eosinophils # (Auto) 0.3 Basophils # (Auto) 0.0 CBC Comment DIFF FINAL Differential Comment Sodium Level 139 Potassium Level 3.7 Chloride Level 106 Carbon Dioxide Level 25.4 Anion Gap 8 Blood Urea Nitrogen 16 Creatinine 1.20 Estimat Glomerular Filtration 81 Rate Random Glucose 85 Calcium Level 9.2 Total Bilirubin 0.4 Aspartate Amino Transf 34 (AST/SGOT) Alanine Aminotransferase 19 (ALT/SGPT) Alkaline Phosphatase 74 Total Protein 9.5 Albumin 3.7 Ethyl Alcohol Level LESS THAN 3 Urine Opiates Screen NEG Urine Barbiturates Screen NEG Urine Amphetamines Screen NEG Urine Benzodiazepines Screen NEG Urine Cocaine Screen NEG Urine Cannabinoids Screen NEG Diagnosis Primary Impression: Impetigo Additional Impression: Adjustment disorder Ruled Out: Psychosis Psychiatrically Cleared: Yes Med/ Other Pt Specific Info: No Meds Exist/No RX given Disposition: 03 DISCHARGE TO SNF Condition: Stable Problem Qualifiers Additional Impression: Adjustment disorder Qualified Code: F43.21 - Adjustment disorder with depressed mood Brenda Messina [facility] Jan 29, 2017 10:39
[2017-01-29 12:42] VITALS: BP 112/61; PULSE 83; RESP 18
== END 2017-01-29 13:39 | disposition home or self-care (01) ==
LOC: NEPJ 12:27
DX: F43.20 Adjustment disorder, unspecified (principal); L01.00 Impetigo, unspecified; F29 Unspecified psychosis not due to a substance or known physiological condition; F32.9 Major depressive disorder, single episode, unspecified; F41.9 Anxiety disorder, unspecified; I10 Essential (primary) hypertension; Z21 Asymptomatic human immunodeficiency virus [HIV] infection status; Z79.899 Other long term (current) drug therapy; Z59.0 Homelessness
CPT/HCPCS: 80053; 80307; 85025; 99284

== ENCOUNTER 2017-02-18 12:12 | Emergency (ER) | payer OTHER ==
[~2017-02-18] VITALS: Ht 172.7 cm; Wt 167.0 kg
[~2017-02-18 12:12] MED LIST changes: -BACT800T5 PO; +HYDR50TA94 PO; -IVER5TAB PO; +LAMI250T PO; -TRIA0.1L TOPICAL; -VIST50CA PO
[2017-02-18 12:14] VITALS: BP 128/74; PULSE 80; RESP 16; TEMP 97.6; O2SAT 100
--- NOTE | 2017-02-18 12:30 | PD ---
Physical Exam Date Seen by Provider: Feb 18, 2017 Time Seen by Provider: 12:29 Narrative 41 YOBM C/O RASH FOR THE PAST FEW DAYS. NO RECENT ILLNESS VS REVIEWED WAITING FOR BED PLACEMENT Data Data Last Documented VS Vital Signs Date Time Temp Pulse Resp B/P Pulse Ox O2 Delivery O2 Flow Rate FiO2 02/18/17 12:14 97.6 80 16 128/74 100 MDM Supervised Visit with MARILEE: Jean Luna Feb 18, 2017 12:30
[2017-02-18] MEDS ORDERED: IVER5TAB PO (13:25)
--- NOTE | 2017-02-18 13:26 | PD ---
HPI Chief Complaint: Skin Problem Time Seen by Provider: 13:24 Travel History International Travel<30 days: No Contact w/Intl Traveler<30days: No Traveled to known affect area: No History of Present Illness HPI 41-year-old male presents to the emergency Department with complaint of recurring crusted scabies rash 3-4 days. Said he had this rash about 2 months ago and was treated with permethrin cream which she had an allergic reaction to. He was then seen again and was given ivermectin which cleared up the rash. The rash reoccurred 3 or 4 days ago. He reports itchiness to the rash. Rashes to bilateral upper extremities, abdomen, lower back and upper back. Denies fever, vomiting. Reports HIV. Has no other medical complaints. Symptoms are mild in severity. No other modifying factors or associated signs and symptoms. PFSH Past Medical History Anxiety: Yes Depression: Yes Diminished Hearing: No Gastrointestinal Disorders: No Genitourinary: No Hypertension: Yes Immune Disorder: Yes (HIV +) Respiratory: Yes (BRONCHITIS) Immunizations Current: Yes Migraines: Yes Past Surgical History Other Surgery: No Social History Alcohol Use: No Tobacco Use: No Substance Use: No Allergies-Medications (Allergen,Severity, Reaction): Coded Allergies: *MDRO Multi-Drug Resistant Organism (Verified Adverse Reaction, Unknown, ) MRSA PCR Screen positive 05/08/15; MRSA (groin-06/2015), (face-08/2015), (wrist-11/2015) Uncoded Allergies: premetherin (Allergy, Unknown, 01/23/17) Reported Meds & Prescriptions Reported Meds & Active Scripts Active Ivermectin 3 Mg Tab 19 Mg PO DAILY 5 Days Reported Lamisil (Terbinafine) 250 Mg Tab 250 Mg PO DAILY Hydroxyzine HCl 50 Mg Tab 50 Mg PO BID Review of Systems Except as stated in HPI: all other systems reviewed are Neg Physical Exam Narrative GENERAL: Well-nourished, well-developed [place] male patient, in no acute distress; afebrile, nontoxic-appearing SKIN: Warm and dry. Generalized erythremic pimple-like rash to bilateral upper extremities, abdomen, upper and lower back; some areas appear excoriated. No areas with cellulitic process noted. HEAD: Atraumatic. Normocephalic. EYES: Pupils equal and round. No scleral icterus. No injection or drainage. ENT: Mucosa pink and moist. Airway patent. NECK: Trachea midline. CARDIOVASCULAR: Regular rate. RESPIRATORY: No accessory muscle use. GASTROINTESTINAL: Flat. MUSCULOSKELETAL: No obvious deformities. No clubbing. No cyanosis. No edema. NEUROLOGICAL: Awake and alert. Oriented 3. No obvious cranial nerve deficits. Motor grossly within normal limits. Normal speech. PSYCHIATRIC: Appropriate mood and affect; insight and judgment normal. Data Data Last Documented VS Vital Signs Date Time Temp Pulse Resp B/P Pulse Ox O2 Delivery O2 Flow Rate FiO2 02/18/17 12:14 97.6 80 16 128/74 100 MDM Medical Decision Making Medical Screen Exam Complete: Yes Emergency Medical Condition: Yes Medical Record Reviewed: Yes Differential Diagnosis Scabies, bedbugs, contact dermatitis, nonspecific rash Narrative Course 41-year-old male physical exam consistent with crusted scabies. Patient was treated for this rash approximately 2 months ago and reports having an allergic reaction to permethrin. He was given ivermectin which he says cleared up the rash last time. Patient of Dr. Mckinney. HIV positive. Afebrile and nontoxic- appearing. Denies fever, vomiting. Ivermectin prescribed for home. Instructed patient to follow up with primary care provider. Patient verbalizes understanding and agreement with treatment plan. Patient is medically cleared and stable for discharge. Discussed reasons to return to the emergency department. Patient agrees with treatment plan. The patients vital signs are stable and the patient is stable for outpatient follow-up and treatment. Patient discharged home, stable and in no acute distress. Diagnosis Primary Impression: Crusted scabies Referrals: Liane Trent MD Backpackers Manager Primary Care Physician Patient Instructions: General Instructions, Scabies (ED) Departure Forms: Tests/Procedures, Work Release Enter return to work date: Feb 22, 2017 Additional Instructions: Elimite cream as directed; repeat in one week as needed Soaking in cool water or apply cool, wet washcloths to irritated areas to minimize itching Apply anti-itch creams, such as calamine lotion, to relieve pain and itching as needed [id number] antihistamines as needed and as directed to relieve allergic symptoms caused by scabies Wash all pillows, linens, blankets, etc. in hot water and dry in hot dryer Bag and all unwashable linens, Encampment stuffed animals, etc. in a tightly sealed garbage bag for up to 2 weeks Follow-up with smeller Follow-up with primary care provider Return to the emergency department immediately with worsening of symptoms Med/Other Pt SpecificInfo: Prescription(s) given Scripts Ivermectin 3 Mg Tab19 Mg PO DAILY 5 Days Prov:Jaqui Campos 02/18/17 Disposition: 01 DISCHARGE HOME Condition: Stable Jaqui Campos Feb 18, 2017 13:26
== END 2017-02-18 14:03 | disposition home or self-care (01) ==
LOC: NEPK 12:12
DX: B86 Scabies (principal); F41.9 Anxiety disorder, unspecified; F32.9 Major depressive disorder, single episode, unspecified; I10 Essential (primary) hypertension; Z79.899 Other long term (current) drug therapy; Z21 Asymptomatic human immunodeficiency virus [HIV] infection status
CPT/HCPCS: 99283